=== PATIENT | female | born 2005 | race Caucasian/White ===

== ENCOUNTER 2024-05-13 12:45 | Emergency (ER) | payer OTHER, SELFPAY ==
[2024-05-13 12:59] VITALS: BP 121/83; PULSE 107; RESP 16; TEMP 37.4; O2SAT 100
--- NOTE | 2024-05-13 13:10 | ED_ITS ---
HPI - URI/Sore Throat General Chief Complaint: Upper Respiratory Infection Stated Complaint: Sore Throat Time Seen by Provider: 05/13/24 13:10 Source: patient Mode of arrival: ambulatory Limitations: no limitations History of Present Illness HPI Narrative: 18 yo F presents with c/o congestion, cough, fatigue, feels feverish, fatigue for 2 days. No SOB or CP. vomited x 1 last night. Did have sore throat but res olved. Not taking any smhl-hcs-bbpmgnn medications to treat symptoms. All systems reviewed and negative except as noted above. Related Data Home Medications ?Medication ?Instructions ?Recorded ?Confirmed ?Last Taken ?Type No Home Medications 05/13/24 05/13/24 Unknown History Allergies Allergy/AdvReac Type Severity Reaction Status Date / Time No Known Allergies Allergy Unverified 07/04/16 13:53 Review of Systems Review of Systems: CONSTITUTIONAL: reports fever, chills, or sweats. EYES: Denies visual changes, redness, or discharge. ENT: Reports rhinorrhea, congestion. Denies sore throat, or otalgia. CARDIOVASCULAR: Denies chest pain, palpitations, or edema. RESPIRATORY: reports cough. Denies dyspnea. GASTROINTESTINAL: Denies abdominal pain, nausea, vomiting, or diarrhea. GENITOURINARY: Denies dysuria or hematuria. SKIN: Denies rash or itching. MUSCULOSKELETAL: Denies back pain, joint pain, or myalgia. NEUROLOGIC: Denies headache, numbness, or weakness. PSYCHIATRIC: Denies anxiety or depression. All other systems reviewed are negative, except as documented in HPI. PMFSH Comments At time of signature, agree with nursing past medical, surgical, social and family history. There is no relevant family history pertinent to the presenting complaint. Exam 2 Narrative: GENERAL: This is a well-nourished, well-developed patient, ill-appearing but no acute distress HEAD: normocephalic, atraumatic. EYES: PERRL. Sclera clear/white. Vision is grossly intact. EARS: External ears normal, auditory canals clear and without drainage, TMs normal without perforation. Hearing grossly intact. NOSE: External nose normal with clear nasal drainage, mild congestion, erythema to bilateral nares THROAT: Mucous membranes moist, mild erythema postnasal drainage. No swelling or exudates NECK: Neck supple, non-tender without lymphadenopathy, masses or thyromegaly. CARDIOVASCULAR: Regular rate and rhythm without murmurs, gallops, or rubs. RESPIRATORY: Clear to auscultation. Breath sounds equal bilaterally. No wheezes, rales, or rhonchi. SKIN: warm, Dry, intact with no suspicious lesions or rash, good texture and turgor. NEURO: awake, alert, and oriented to person, place and time. There were no obvious focal neurologic abnormalities. EXTREMITIES: No joint tenderness, effusion, or edema noted. Course Course Level of Care: Express Care Visit Vital Signs Vital signs: Vital Signs Temperature 37.4 C 05/13/24 12:59 Pulse Rate 107 H 05/13/24 12:59 Respiratory Rate 16 05/13/24 12:59 Blood Pressure 121/83 05/13/24 12:59 Pulse Oximetry 100 05/13/24 12:59 Oxygen Delivery Room Air 05/13/24 12:59 Temperature 37.4 C 05/13/24 12:59 Pulse Rate 107 H 05/13/24 12:59 Respiratory Rate 16 05/13/24 12:59 Blood Pressure 121/83 05/13/24 12:59 Pulse Oximetry 100 05/13/24 12:59 Oxygen Delivery Room Air 05/13/24 12:59 reviewed MDM - URI/Sore Throat MDM Narrative Medical decision making narrative: negative COVID and influenza test. Lungs clear to auscultation. Recommend patient start kubk-png-kcvtdlh medications to treat viral symptoms. Well-a ppearing, nontoxic. Patient is aware of diagnosis, understands and agrees to treatment plan. Anticipatory guidance given. Patient agrees to follow-up as directed and is aware of reasons to seek care at the emergency department. Portions of this record may have been created with voice recognition software Differential Diagnosis Differential diagnosis: Likely upper respiratory infection, sinusitis, viral infection and influenza Lab Data Labs: Lab Results 05/13/24 Range/Units 13:16 POC Influenza A Ag Negative (Negative) POC Influenza B Ag Negative (Negative) POC SARS CoV-2 Ag Negative (Negative) Discharge Plan Discharge Clinical Impression: Viral upper respiratory tract infection with cough Patient Disposition: Home, Self-Care Condition: Stable Instructions: Upper Respiratory Infection (ED) Additional Instructions: Your influenza and COVID test were negative today. Your symptoms are viral and may last 10-14 days. Taking kweh-fcp-qejjzdm medication to treat her symptoms such as DayQuil NyQuil cold and flu. Use an wedw-her-nsvbkfc nasal spray such as Flonase or Nasacort. Take ibuprofen every 6-8 hours as needed for pain and fever. Drink at least 64 oz of water a day. Place cool mist humidifier in bedroom where you sleep. Follow-up with your primary care physician if symptoms are not improving. Patient Language: Estonian Prescriptions: No Action No Home Medications Follow-up/Referrals: Edmar,Marcela Melton MD [Primary Care Provider] - Time of Disposition: 13:17
[2024-05-13 13:18] LABS: EDCOVIDSCREEN Negative (Negative); EDINFLUASCREEN Negative (Negative); EDINFLUBSCREEN Negative (Negative)
--- OUTSIDE RECORDS SUMMARY | 2024-05-20 19:26 | XMS_ITS | Encounter Summary ---
Author Organization [facility] Address [address] [place] [address] Phone Care Team Providers Care Integrated Circuit Layout Designer Name Role Phone Marcela Hyatt MD Primary Care Pro vider Reason for Referral * Diagnostic Imaging (Routine) - Authorized Specialty Diagnoses / Procedures Referred By Contac t Referred To Contact Diagnoses Mass of lower outer quadrant of right breast Hx of benign breast biopsy Procedures US Breast Bilateral Limited Deidre Caceres MD PhD [address] [id number] [place] [address] Phone: tel: fax: [address] [phone] Referral ID Status Reason Start Date Expiration Date V isits Requested Visits Authorized [id number] Authorized 07/29/2023 08/27/2024 1 1 Encounter Details Date Type Department Care Team (Late st Contact Info) Description 07/29/2023 Orders Only [facility] Surgery [address] [facility] 5th [place] [address] [place] [address] Deidre Caceres MD PhD [address] [phone] [place] [address] Mass of lower outer quadrant of right breast (Primary Dx); Hx of benign breast biopsy Social History Tobacco Use Types Packs/Day Years Used Date Smoking Tobacco: Never Passive Smoke Exposure: Never Smokeless Tobacco: Never Hunger Vital Sign Answer Date Recorded Within the past 12 months, y ou worried that your food would run out before you got the money to buy more. Never true 09/05/19 23 Within the past 12 months, t he food you bought just didn't last and you didn't have money to get more. Never true 09/04/2022 Personal Safety Answer Date Recorded Have you ever been in or are you currently in a harmful physical or emotional relationship or is someone making you feel afraid or unsafe? 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 Gender Identity Female 02/09/2024 11:18 AM CDT Sexual Orientation Straight 02/09/2024 11 :18 AM CDT documented as of this encounter Plan of Treatment Scheduled Orders Name Type Priority Associated Diagnoses Orde r Schedule US Breast Bilateral Limited Imaging Schedule Routine, Read Routine (OP Routine) Mass of lower outer quadrant of right breast Hx of benign breast biopsy Expected: 07/29/2023, Expires: 09/27/2024 documented as of this encounter Visit Diagnoses Diagnosis Mass of lower outer quadrant of right breast- Primary Hx of benign breast biopsy documented in this encounter Care Teams Integrated Circuit Layout Designer Relationship Specialty Start Date End Date Marcela Hyatt MD PCP - General 09/09/20 documented as of this encounter
--- OUTSIDE RECORDS SUMMARY | 2024-05-20 19:26 | XMS_ITS | Encounter Summary ---
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 documented in this encounter Plan of Treatment Not on file documented as of this encounter Visit Diagnoses Not on filedocumented in this encounter Discontinued Medications Medication Sig Discontinue Reason Start Date End Da te drospirenone-ethinyl estradioL (NALLELY DIMAS) 3-0.02 mg per tabletIndications:Pregnanc y Contraception Take 1 tablet by mouth daily Reorder 09/24/2022 08/11/2023 documented as of this encounter Care Teams Potato Chip Processing Supervisor Relationship Specialty Start Date End Date Marcela Hyatt MD PCP - General 09/09/20 documented as of this encounter
--- OUTSIDE RECORDS SUMMARY | 2024-05-20 19:26 | XMS_ITS | Encounter Summary ---
Author Organization [facility] Healthcare Address [address] [place] [address] Care Team Providers Care Head Esthetician Name Role Phone Marcela Hyatt MD Primary Care Pro vider Encounter Details Date Type Department Care Team ([facility] st Contact Info) Description 08/11/2023 Telephone [facility] [address] 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 documented in this encounter Plan of Treatment Not on file documented as of this encounter Visit Diagnoses Not on filedocumented in this encounter Care Teams Head Esthetician Relationship Specialty Start Date End Date Marcela Hyatt MD PCP - General 09/09/20 documented as of this encounter
--- OUTSIDE RECORDS SUMMARY | 2024-05-20 19:26 | XMS_ITS | Encounter Summary ---
Author Organization [facility] Healthcare Address [address] [place] [address] Care Team Providers Care Territory Business Manager Name Role Phone Marcela Hyatt MD Primary Care Pro vider Reason for Visit * Reason Comments well woman exam Encounter Details Date Type Department Care Team (Late st Contact Info) Description 10/05/2023 2:15 PM CDT Office Visit [facility] Clinic [address] [place] [address] 3rd [address] [place] [address] Gabby Contreras MD [address] [place] [address] [address] [place] [address] Healthcare maintenance (Primary Dx) Social History Tobacco Use Types Packs/Day Years Used Date Smoking Tobacco: Never Passive Smoke Exposure: Never Smokeless Tobacco: Never Tobacco Cessation:Counseling Given: Not Answered Hunger Vital Sign Answer Date Recorded Within the past 12 months, y ou worried that your food would run out before you got the money to buy more. Never true 10/05/19 24 Within the past 12 months, t he food you bought just didn't last and you didn't have money to get more. Never true 10/05/2023 Personal Safety Answer Date Recorded Have you ever been in or are you currently in a harmful physical or emotional relationship or is someone making you feel afraid or unsafe? 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 Gender Identity Female 02/09/2024 11:18 AM CDT Sexual Orientation Straight 02/09/2024 11 :18 AM CDT documented as of this encounter Last Filed Vital Signs Vital Sign Reading Time Taken Comments Blood Pressure 127/73 10/05/2023 2:38 PM CDT Pulse 85 10/05/2023 2:38 PM CDT Temperature - - Respiratory Rate - - Oxygen Saturation 97% 10/05/2023 2:38 PM CDT Inhaled Oxygen Concentration - - Weight 65.6 kg (144 lb 9.6 oz) 10/05/2023 2:38 P M CDT Height 167.6 cm (5' 6 ) 10/05/2023 2:38 PM CDT Body Mass Index 23.34 10/05/2023 2:38 PM CDT Body Mass Index Percentile 69.04% 10/05/2023 2:3 8 PM CDT Growth Chart: [facility] (Girls, 2- 20 Years) documented in this encounter Ordered Prescriptions Prescription Sig Dispense Quantity Refills Last Filled Start Date End Date drospirenone-ethin yl estradioL (WING,GIANVI) 3-0.02 mg per tablet Take 1 tablet by mouth daily 1 po qd at same time 84 tablet 3 10/05/2023 10/04/2024 documented in this encounter Progress Notes * Gabby Contreras MD - 10/05/2023 2:15 PM CDT Well Woman Exam Subjective: Sulma Cardona is a 17 y.o. G0 who presents for well woman exam. PMH significant for R breast masses. Pt has a hx of R breast masses for which she had excisional biopsy of masses x3 in 11/2022. 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 Today she presents with R breast lump that she feels has gotten bigger over the last few weeks. Shehad a breast US for this mass in July with BIRADS-3 and recommendation for follow-up in 6 months with repeat R breast US. She follows with surgical oncology and was most recently seen in July and agrees with plan for 6 month follow-up, scheduled on 02/16. Reports she is feeling well. No other tape stringer complaints. She reports currently sexually active with 1 partner and declines STI testing today. She is on Wing/Gianvi for control and is happy with this method. She desires new rx today. INDUSTRIAL WORKERS History Menses: regular, every 30 days, lasting 4 days, not painful. LMP 09/22-09/25. Pap smear: not indicated STD History: none Contraception: Wing / Gianvi HRT: pre-menopausal No past medical history on file. Past Surgical History: Procedure Laterality Date BREAST BIOPSY Right 10/13/2022 TONSILLECTOMY 2017 Current Outpatient Medications: docusate sodium (DOK) 100 mg tablet, Take 1 tablet (100 mg total) by mouth 2 (two) times a day for 5 days, Disp: 10 tablet, Rfl: 0 drospirenone-ethinyl estradioL (WING,GIANVI) 3-0.02 mg per tablet, Take 1 tablet by mouth daily, Disp: 28 tablet, Rfl: 2 ibuprofen 200 mg tab/cap, Take 2 tablet/capsule (400 mg total) by mouth every 6 (six) hours as needed for pain or headaches, Disp: , Rfl: oxyCODONE (ROXICODONE) 5 mg immediate release tablet, Take 1 tablet (5 mg total) by mouth every 4 (four) hours as needed for pain, Disp: 8 tablet, Rfl: 0 No Known Allergies Family History Problem Relation Age of Onset Cancer Neg Hx Anesthesia problems Neg Hx Social History Tobacco Use Smoking status: Never Passive exposure: Never Smokeless tobacco: Never Substance and Sexual Activity Drug use: Never Sexual activity: Defer Alcohol Use: Not on file Objective: BP 127/73 (Patient Position: Sitting) Pulse 85 Ht 167.6 cm (5' 6 ) Wt 144 lb 9.6 oz LMP 09/23/2023 SpO2 97% BMI 23.34 kg/m?? Physical Exam General: NAD, mood appropriate Pulmonary: Non-labored Cardiovascular: Regular rate Breasts: One dominant mass in R breast at 12 o'clock. It is firm and mobile. No other masses felt b/l. No nipple discharge skin dimpling or erythema. No axillary lymphadenopathy bilaterally. Abdomen: soft, non-tender, non-distended, without rebound or guarding Extremities: Warm and well perfused GENITAL EXAM: deferred Assessment and Plan: Sulma Cardona is a 17 y.o. G0 here for well woman exam. #Well Woman Exam - Contraceptive options reviewed. Patient would like to continue Wing/Gianvi. Rx re-sent for 12 months. - STI screening discussed. Declines - Cervical cancer screening: Not yet indicated 2/2 age. - Breast cancer screening: CBE as above. Plan for follow-up breast US scheduled 02/16. - Colon cancer screening: Not indicated - DEXA: Not indicated RTC 1 year for WWE or sooner PRN. Patient seen and discussed with Dr. Walter. Gabby Contreras MD Cosigned by Trung Walter MD at 10/07/2023 2:05 PM CDT Associated attestation - Trung Walter MD - 10/07/2023 2:05 PM CDT I have seen and examined the patient. I agree with the findings and plan of care as documented in the resident/fellow's note. documented in this encounter Plan of Treatment Not on file documented as of this encounter Visit Diagnoses Diagnosis Healthcare maintenance- Primary documented in this encounter Discontinued Medications Medication Sig Discontinue Reason Start Date End Da te docusate sodium (DOK) 100 mg tabletIndications:const ipation Take 1 tablet (100 mg total) by mouth 2 (two) times a day for 5 days Therapy completed 12/11/2022 10/07/2023 ibuprofen 200 mg tab/cap Take 2 tablet/capsule (400 mg total) by mouth every 6 (six) hours as needed for pain or headaches Therapy completed 10/07/2023 oxyCODONE (ROXICODONE) 5 mg immediate release tabletIndications:Pain Take 1 tablet (5 mg total) by mouth every 4 (four) hours as needed for pain Therapy completed 12/11/2022 10/07/2023 documented as of this encounter Care Teams Territory Business Manager Relationship Specialty Start Date End Date Marcela Hyatt MD PCP - General 09/09/20 documented as of this encounter
--- OUTSIDE RECORDS SUMMARY | 2024-05-20 19:26 | XMS_ITS | Encounter Summary ---
Author Organization [facility] Address [address] [facility] [address] [place] [address] Phone Care Team Providers Care Bow Stapler Name Role Phone Marcela Hyatt MD Primary Care Pro vider Encounter Details Date Type Department Care Team (Late st Contact Info) Description 02/11/2024 Telephone [facility] Surgery [address] [facility] 5th [place] [address] [place] [address] Deidre Caceres MD PhD [address] [facility] [phone] [place] [address] Social History Tobacco Use Types Packs/Day Years [...] on file 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 No Reason for call?: Patient calling to confirm an issue with Billing for insurance for the ultrasoundscheduled on 02/17. Gave her billing number, but she was under the impression that this would be covered as a preventative. Who is the caller: Fariba (Pt. Mother) What is the best number for them to contact for a call back: [phone] documented in this encounter Plan of Treatment Not on file documented as of this encounter Visit Diagnoses Not on filedocumented in this encounter Care Teams Bow Stapler Relationship Specialty Start Date End Date Marcela Hyatt MD PCP - General 09/09/20 documented as of this encounter
--- OUTSIDE RECORDS SUMMARY | 2024-05-20 19:26 | XMS_ITS | Encounter Summary ---
Author Organization [facility] Address [address] [place] [address] Phone Care Team Providers Care Automotive Repair Technician Name Role Phone Marcela Hyatt MD Primary Care Pro vider Encounter Details Date Type Department Care Team (Late st Contact Info) Description 02/08/2024 Telephone [facility] Surgery [address] [facility] 5th [place] [address] [place] [address] Svetlana Marie Social History Tobacco Use Types Packs/Day Years [...] on file 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 documented in this encounter Plan of Treatment Not on file documented as of this encounter Visit Diagnoses Not on filedocumented in this encounter Care Teams Automotive Repair Technician Relationship Specialty Start Date End Date Marcela Hyatt MD PCP - General 09/09/20 documented as of this encounter
--- OUTSIDE RECORDS SUMMARY | 2024-05-20 19:26 | XMS_ITS | Clinical Summary ---
Author Organization [facility] Address [address] [place] [address] Care Team Providers Care Multiple Knife Edge Trimmer Operator Name Role Phone Marcela Hyatt MD Primary Care Pro vider Allergies No known active allergies Medications drospirenone-ethin yl estradioL (WING,GIANVI) 3-0.02 mg per tabletIndications: Contraception Take 1 tablet by mouth daily 28 tablet 2 4 08/11/19 25 Active drospirenone-ethin yl estradioL (WING,GIANVI) 3-0.02 mg per tablet Take 1 tablet by mouth daily 1 po qd at same time 84 tablet 3 4 10/05/19 25 Active Active Problems Problem Noted Date Diagnosed Date Healthcare maintenance 09/04/2022 Overview (09/04/2022): - STI testing today Encounter for general sobia duran and advice on contraceptive management 09/04/2022 Overview (09/04/2022): - no contraindication to estrogen - discussed contraceptive options - information printed out for patient - patient will notify provider if she would like to start control Mass of right breast 09/04/2022 Overview (09/04/2022): - Reports long standing hx of R breast mass followed by US - Most recently patient had bilateral breast US on 07/03/22 that showed 2.9 cm mass in R breast (4 o'clock) increased in size and 1.0 cm mass in R breast (3 o'clock). BI-RADS 4A and US guided biopsy was recommended. 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 Gender Identity Female 02/09/2024 11:18 AM CDT Sexual Orientation Straight 02/09/2024 11 :18 AM CDT Obstetrics History Growth Chart Information Age Height Weight Rblpix-pba-tdoh th Percentile BMI Percentile Head Circum Head Circum Percentile Date 17 years 167.6 cm (5' 6 ) 65.6 kg (144 lb 9.6 oz) 69.04%* 2023 17 years 167.6 cm (5' 5.98 ) 65.8 kg (145 lb 1 oz) 70.25%* 2023 17 years 167.6 cm (5' 5.98 ) 65.8 kg (145 lb 1 oz) 71.86%* 2022 17 years 167.6 cm (5' 6 ) 65.8 kg (145 lb) 71.80%* 2022 17 years 167.6 cm (5' 6 ) 64.9 kg (143 lb) 69.39%* 2022 16 years 65.2 kg (143 lb 12.8 oz) 2022 14 years 167.6 cm (5' 6 ) 54.4 kg (120 lb) 36.24%* 2020 * [facility] (Girls, 2-20 Years) Last Filed Vital Signs Vital Sign Reading Time Taken Comments Blood Pressure 127/73 10/05/2023 2:38 PM CDT Pulse 85 10/05/2023 2:38 PM CDT Temperature 36.2 ??C (97.2 ??F) 12/11/2022 6:51 PM CD T Respiratory Rate 20 12/11/2022 7:25 PM CDT Oxygen Saturation 97% 10/05/2023 2:38 PM CDT Inhaled Oxygen Concentration - - Weight 65.6 kg (144 lb 9.6 oz) 10/05/2023 2:38 P M CDT Height 167.6 cm (5' 6 ) 10/05/2023 2:38 PM CDT Body Mass Index 23.34 10/05/2023 2:38 PM CDT Body Mass Index Percentile 69.04% 10/05/2023 2:3 8 PM CDT Growth Chart: [facility] (Girls, 2- 20 Years) Plan of Treatment Health Maintenance Due Date Last Done Comments Depression Screening 2004 Hepatitis C Screening 2004 Meningococcal B Vaccine (1 of 2 - Patient Seeks Protection) 2020 Influenza Vaccine (#1) 2024 Regular Well Visit/Exam 18-64 10/04/2024 10/05/2023 DTaP/Tdap/Td Vaccine (7 - Td or Tdap) 11/05/2024 11/05/2014, 11/12/2009, 02/05/2006, Additional history exists Pneumococcal vaccine <65 Aged Out 006, 04/17/2005, 02/20/2005, Additional history exists No longer eligible based on patient's age to complete this topic Varicella Vaccines Completed 11/12/2009, 11/13/2005 HPV Vaccines Completed 11/11/2015, 11/05/2014 Meningococcal Vaccine Completed 01/23/2021, 016 Medical Devices Implanted Type Area Cause Analyst Device Identifier Shelf Expiration Date Model / Serial / Lot Bard Peripheral Vascular Ultraclip Bard 17ga 10cm 2 Trigger Permanent Ultrasound [id number] - [id number] Implanted:Qty: 1 on 10/13/2022 at [facility] Bard Peripheral Vascular [id number] / / Insurance [facility] [employer] [facility] [employer] Care Teams Multiple Knife Edge Trimmer Operator Relationship Specialty Start Date End Date Marcela Hyatt MD PCP - General 09/09/20
--- OUTSIDE RECORDS SUMMARY | 2024-05-20 19:26 | XMS_ITS | Referral Summary ---
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 (Girls, 2- 20 Years) Plan of Treatment Not on file Medical Devices Implanted Type Area Dental Hygiene Professor Device Identifier Shelf Expiration Date Model / Serial / Lot Bard Peripheral Vascular Ultraclip Bard 17ga 10cm 2 Trigger Permanent Ultrasound [id number] - [id number] Implanted:Qty: 1 on 10/13/[address] [facility] Bard Peripheral Vascular [id number] / / Insurance [facility] STUDENT RESOURCES [facility] HMO/PPO Address: [facility] [id number] [place] [phone] [facility] [employer] [facility] HMO/PPO Address: [facility] [id number] [place] [phone] Care Teams Knitting Demonstrator Relationship Specialty Start Date End Date Marcela Hyatt MD PCP - General 09/09/20
--- OUTSIDE RECORDS SUMMARY | 2024-05-20 19:26 | XMS_ITS | Clinical Summary ---
Author Organization [facility] Address [address] [facility], [address] [address] Phone Care Team Providers Care Liquid Chlorine Operator Name Role Phone Marcela Hyatt MD Primary Care Provider [phone] Allergies No known active allergies Medications acetaminophen (TYLENOL) 80 MG Chewable Tablet Take 4 Tabs by mouth every 4 hours as needed for Pain or Fever. 7 Active Additional Information Patient not taking.Reported on 02/15/2017 HYDROcodone-Torsten taminophen 7.5-325 MG/15ML Solution Take 16.3 mL by mouth every 4 hours as needed for Pain. 120 mL Active Additional Information Patient not taking.Reported on 02/15/2017 Social History Tobacco Use Types Packs/Day Years Used Date Smoking Tobacco: Never Smokeless Tobacco: Never Alcohol Use Standard Drinks/Week Comments No 0 (1 standard drink = 0.6 oz pur e alcohol) Comments No Sex and Gender Information Value Date Recorded Sex Assigned at Not on file Legal Sex Female 8:01 PM CDT Gender Identity Not on file Sexual Orientation Not on file Last Filed Vital Signs Vital Sign Reading Time Taken Comments Blood Pressure 102/64 02/15/2017 2:40 PM CDT Pulse 64 02/15/2017 2:40 PM CDT Temperature 35.2 ??C (95.4 ??F) 01/21/2017 11:08 AM C DT Respiratory Rate 18 02/15/2017 2:40 PM CDT Oxygen Saturation 99% 02/15/2017 2:40 PM CDT Inhaled Oxygen Concentration - - Weight 46.3 kg (102 lb) 02/15/2017 2:40 PM CDT Height 162.6 cm (5' 4 ) 02/15/2017 2:40 PM CDT Body Mass Index 17.51 02/15/2017 2:40 PM CDT Body Mass Index Percentile 38.47% 02/15/2017 2:4 0 PM CDT Growth Chart: [facility] (Girls, 2- 20 Years) Plan of Treatment Health Maintenance Due Date Last Done Comments Hepatitis C Virus (HCV) Screening 2004 Meningococcal Immunization (ACWY) (2 - 2-dose series) 2020 11/11/2015 SARS-COV-2 Immunization (2022-24 season) 2023 Influenza Immunization (Season Ended) 2024 DTaP/Tdap/Td Immunization (7 - Td or Tdap) 11/05/2024 11/05/2014, 11/12/2009, 02/05/2006, Additional history exists Hepatitis B Immunization Completed 005, 02/20/2005, 2004, Additional history exists Pneumococcal Immunization Combined Aged Out 11/13/2005, 04/17/2005, 02/20/2005, Additional history exists No longer eligible based on patient's age to complete this topic Hepatitis A Immunization Completed 11/05/2006, 04/17 Measles Mumps Rubella (MMR) Immunization Completed 11/12/2009, 11/13/2005 Polio (IPV) Immunization Completed 010, 04/17/2005, 02/20/2005, Additional history exists Varicella Immunization Completed 11/12/2009, 2005 Human Papillomavirus (HPV) Immunization Completed 11/11/2015, 11/05/2014 Rotavirus Immunization Aged Out No lo nger eligible based on patient's age to complete this topic Insurance MEDICAID [employer] Care Teams Liquid Chlorine Operator Relationship Specialty Start Date End Date Marcela Hyatt MD [address] [facility] [address] [place] [id number] PCP - General Pediatrics 12/09/16
--- OUTSIDE RECORDS SUMMARY | 2024-05-20 19:27 | XMS_ITS | Encounter Summary ---
Author Organization [facility] Address [address] [place] [address] Care Team Providers Care Data Collector Name Role Phone Marcela Hyatt MD Primary Care Pro vider Reason for Referral * Diagnostic Imaging (Routine) - Closed Specialty Diagnoses / Procedures Referred By Shimon hale Referred To Contact Diagnoses Unspecified lump in the right breast, unspecified quadrant Procedures US Breast Right Limited Yaima Carter NP Phone: tel: fax: [address] [phone] Referral ID Status Reason Start Date Expiration Date Visits Re quested Visits Authorized [id number] Closed 09/11/2020 10/11/2021 1 1 Reason for Visit * Diagnostic Imaging (Routine) - Closed Specialty Diagnoses / Procedures Referred By Shimon hale Referred To Contact Diagnoses Unspecified lump in the right breast, unspecified quadrant Procedures US Breast Right Limited Yaima Carter NP Phone: tel: fax: [address] [phone] Referral ID Status Reason Start Date Expiration Date Visits Re quested Visits Authorized [id number] Closed 09/11/2020 10/11/2021 1 1 Encounter Details Date Type Department Care Team (Latest Contact Info) Description 09/20/2020 2:09 PM CDT - 09/20/2020 11:59 PM CDT Hospital Encounter [facility] ` [id number] [place] [address] Marcela Hyatt MD [address] [place] [address] [address] [place] [address] 1, Yaima Bo Md, NP [address] [place] [address] [address] [place] [address] Unspecified lump in the right breast, unspecified quadrant Discharge Disposition: Discharge to home or self care Social History Tobacco Use Types Packs/Day Years Used Date Smoking Tobacco: Never Assessed Comments No Sex and Gender Information Value Date Recorded Sex Assigned at Not on file 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 Gender Identity Female 02/09/2024 11:18 AM CDT Sexual Orientation Straight 02/09/2024 11 :18 AM CDT documented as of this encounter Discharge Disposition Disposition Code Departure Means Destination Discharge to home or self care documented in this encounter Plan of Treatment Not on file documented as of this encounter Procedures Procedure Name Priority Date/Time Associated Diagnosis Comments US BREAST RIGHT LIMITED Schedule Routine, Read Routine (OP Routine) 09/20/2020 2:47 PM CDT Unspecified lump in the right breast, unspecified quadrant documented in this encounter Results * US Breast Right Limited (09/20/2020 2:47 PM CDT) Anatomical Region Laterality Modality Breast Right Ultrasound 09/20/2020 3:05 PM CDT Impressions 09/20/2020 3:05 PM CDT BI-RADS Category 3 probably benign Suggest follow-up ultrasound every 6 months for 2 years. Electronically signed by: Linn Guzman M.D. Narrative 09/20/2020 3:05 PM CDT EXAM: ??US BREAST RIGHT LIMITED DATE: 09/20/2020 2:30 PM CLINICAL HISTORY: Palpable lump right breast for the 2 weeks and 14-year-old female TECHNIQUE: Multiple ultrasonographic images of the right breast obtained ?? Comparison none FINDINGS: Real-time examination of the right breast is performed in the area of palpable lump. At 4:00 4 cm from the nipple there is 1.9 cm x 0.9 cm x 1.8 cm hypoechoic capsulated mass with blood flow suggestive of fibroadenoma suggest ultrasound guided biopsy/6 month follow-up for 2 years. Patient's mom had decided ??follow-up every 6 month for 2 years. us Yaima Carter INSIGHT LEADER IMG MAMMO PROCEDURES Final Res ult documented in this encounter Visit Diagnoses Diagnosis Unspecified lump in the right breast, unspecified quadrant documented in this encounter Care Teams Data Collector Relationship Specialty Start Date End Date Marcela Hyatt MD PCP - General 09/09/20 documented as of this encounter
--- OUTSIDE RECORDS SUMMARY | 2024-05-20 19:27 | XMS_ITS | Encounter Summary ---
Author Organization [facility] Address [address] [facility] [address] [place] [address] Phone Care Team Providers Care Manager Content Name Role Phone Marcela Hyatt MD Primary Care Pro vider Reason for Visit * Reason Comments Follow-up * Consultation (Routine) - Closed Specialty Diagnoses / Procedures Referred By Contac t Referred To Contact Surgical Oncology Diagnoses Mass of lower outer quadrant of right breast Deidre Caceres MD PhD [address] [facility] [phone] [place] [address] Phone: tel: fax: Deidre Caceres MD PhD [address] [facility] [phone] [place] [address] Phone: tel: fax: Referral ID Status Reason Start Date Expiration Date V isits Requested Visits Authorized [id number] Closed Specialty Services Required 11/30/2022 12/30/2023 1 1 Encounter Details Date Type Department Care Team (Late st Contact Info) Description 12/24/2022 10:45 AM CDT Office Visit [facility] Surgery [address] [facility] 5th [place] [address] [place] [address] Deidre Caceres MD PhD [address] [facility] [phone] [place] [address] Hx of benign breast biopsy (Primary Dx); Mass of lower outer quadrant of right breast; Fibroadenoma of right breast Social History Tobacco Use Types Packs/Day Years [...] on file 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 Gender Identity Female 02/09/2024 11:18 AM CDT Sexual Orientation Straight 02/09/2024 11 :18 AM CDT documented as of this encounter Last Filed Vital Signs Vital Sign Reading Time Taken Comments Blood Pressure - - Pulse - - Temperature - - Respiratory Rate - - Oxygen Saturation - - Inhaled Oxygen Concentration - - Weight 65.8 kg (145 lb 1 oz) 12/24/2022 10:46 AM CDT Height 167.6 cm (5' 5.98 ) 12/24/2022 10:46 AM C DT Body Mass Index 23.43 12/24/2022 10:46 AM CDT Body Mass Index Percentile 71.86% 12/24/2022 10: 46 AM CDT Growth Chart: [facility] (Girls, 2- 20 Years) documented in this encounter Progress Notes * Deidre Caceres MD PhD - 12/24/2022 10:45 AM CDT Chief Complaint: Postoperative Follow up Right Breast Excisional Biopsy Of Masses X 3 - Right and Mastopexy- [place] - Right Marcela Hyatt* requested that I see SUNG Ding 2005, in consultation for right breast fibr. Treatment to Date: 07/03/2022 Right breast US: 2.9 cm mass at the palpable area of concern in the right breast at the 4 o'clock position, 4 cm from the nipple has increased in size. The 1.0 cm mass in the right breast at the 3 o'clock position, 4 cm from the nipple has increased in size. This is of lowsuspicion for malignancy and is favored to represent a complicated cyst or cyst cluster. 10/13/2022 US Guided Biopsy: Breast, right, 4:00 - 4 cm from nipple, ultrasound- guided biopsy fibroadenoma 12/11/2022 Right breast excisional biopsy and crescent mastopexy showing fibroadenoma HPI 11/05/2022: Patient is a 17 y.o. woman complaining of a mass in the right breast which she first felt in 2020. It has increased in size since she first felt it. Patient denies any other masses, skin changes, nipple discharge or skin changes. Interval History12/24/2022 : This is a 17 y.o. person who presents in postop follow up right breast excisional biopsy. Since surgery, she has been doing well. She denies fevers, redness of incision , pain. She has had some serous drainage from the superior aspect of her incision. Exam Right periareolar incision healing well with small amount of devitalized tissue at the superior aspect of incision. No expressible drainage. Pathology: I reviewed the pathology report. Results for orders placed or performed during the hospital encounter of 12/11/22 Surgical pathology Narrative EPIC results best viewed via link to PDF [facility] [place] [address] Note to Patients: This report may contain a detailed description of human tissue sent by a health care provider to the laboratory for pathologic evaluation. The content of this report is essential for diagnosis and may provide important critical findings. This information may be unfamiliar to patients to review without a medical professional present. Itis advised that the patient review this report in the presence of a health care provider who can answer questions and explain the details. SURGICAL PATHOLOGY REPORT FINAL Patient Name: MARGARETH CARDONA Gender: F : 2005 (Age: 17) Address: [address] [place], [place] [id number] [place] [address] #: [id number] Taken:12/11/2022 Received:12/12/2022 Reported: 12/15/2022 Patient Type: [facility] Service: Surgery Location: Physician(s): Dorothy Guzman M.D. Kaitlyn Kennard, MD Omolade O. Sogade, MD Diagnosis: A. Breast, right, 4:00, lumpectomy - Fibroadenoma - Biopsy site change B. Breast, right, 3:30, lumpectomy - Fibroadenoma - Biopsy site change C. Breast, right, 10:00, lumpectomy - Fibroadenoma fib/12/15/2022 11:02 By this signature, I attest that the above diagnosis is based upon my personal examination of the slides(and/or other material indicated in the diagnosis). Cinthia Travis M.D. Report Electronically Reviewed and Signed Out By Cinthia Travis M.D. 12/15/2022 11:02:38 Microscopic Description and Comment: Microscopic examination substantiates the above cited diagnosis. Sarahi Meadows M.D. History: The patient is an 17 year old woman with right breast masses. Operative procedure: Right breast biopsy. Specimen(s) Received: A: Right breast 4 o'clock mass, short stitch superior, long stitch lateral B: Right breast 3:30 o'clock mass, short stitch superior, long stitch lateral C: Right breast 10:00 o'clock lesion, short stitch superior, long stitch lateral Gross Description: Received in three formalin jars labeled with the patient's identifiers. A. Labeled Right breast 4 o?clock mass, short stitch superior long stitch lateral -Collected: 1744 on 12/11/2022 -Received: 1746 on 12/11/2022 -Placed in formalin: on 12/11/2022 -Specimen dimensions: Medial to Lateral: 2.5 cm Superior to Inferior: 2.5 cm Anterior to Posterior: 2 cm -Weight: 7.6 g -Orientation: Short stitch superior long stitch lateral -Margins inked: Superior: Blue Inferior: Green Anterior: Yellow Posterior: Black -Sectioned: Medial to lateral -Number of slices: 5 -Gross findings: The specimen is a well-defined benson-white, indurated fibrous mass (2.5x2.5x2 cm). The mass has a benson-white, homogenous lobular cut surface with no gross hemorrhage or necrosis. -Specimen radiographed: Yes -Radiograph findings: There is one clip in the specimen. -Diagram: Yes -Summary of sections: A1 Slice 1, medial margin radially sectioned A2-A4 Slice 2-4, mass entirely submitted A5 Slice 5, lateral margin radially sectioned. Jar: 0 B. Labeled Right breast 3:30 o?clock mass, short stitch superior long stitch lateral -Collected: 174 on 12/11/2022 -Received: 175 on 12/11/2022 -Placed in formalin: on 12/11/2022 -Specimen dimensions: Medial to Lateral: 3 cm Superior to Inferior: 2 cm Anterior to Posterior: 1 cm -Weight: 2.8 g -Orientation: Short stitch superior long stitch lateral -Margins inked: Superior: Blue Inferior: Green Anterior: Yellow Posterior: Black -Sectioned: Medial to lateral -Number of slices: -Gross findings: The specimen is an ill-defined benson-white, indurated fibrous mass (3x2x1 cm). The lesion has benson-white cut surface with no gross hemorrhage or necrosis. -Specimen radiographed: Yes -Radiograph findings: There is one clip in the specimen. -Diagram: Yes -Summary of sections: B1 Slice 1, medial margin radially sectioned B2-B4 Slice 2-4, mass entirely submitted B5 Slice 5, lateral margin radially sectioned. Jar: 0 C. Labeled Right breast 10:00 o?clock lesion, short stitch superior long stitch lateral -Collected: 174 on 12/11/2022 -Received: 175 on 12/11/2022 -Placed in formalin: on 12/11/2022 -Specimen dimensions: Medial to Lateral: 1.2 cm Superior to Inferior: 2 cm Anterior to Posterior: 1.9 cm -Weight: 3 g -Orientation: Short stitch superior long stitch lateral -Margins inked: Superior: Blue Inferior: Green Anterior: Yellow Posterior: Black -Sectioned: Medial to lateral -Number of slices: 4 -Gross findings: The specimen is an ill-defined benson-white, indurated fibrous mass (1.2x2x1.9 cm). The lesion has benson-white, homogenous lobular cut surface with no gross hemorrhage or necrosis. -Specimen radiographed: Yes -Radiograph finding -Diagram: Yes -Summary of sections: C1 Slice 1, medial margin radially sectioned C2-C3 Slice 2-3, mass entirely submitted C4 Slice 4, lateral margin radially sectioned. Jar: 0 [facility]12/14/2022 09:10 Gross Resident:Gavino Myers M.D. By this signature, I attest that the above diagnosis is based upon my personal examination of the slides(and/or other material). Addenda/Procedures The performance characteristics of some immunohistochemical stains, fluorescence in-situ hybridization tests and immunophenotyping by flow cytometry cited in this report (if any) were determined by the Surgical Pathology and Flow Cytometry Departments at [facility] as part of an ongoing bottle house quality control technician program and in compliance with federally mandated regulations drawn from the Clinical Laboratory Improvement Act of 1988 (CLIA '88). Some of these tests rely on the use of analyte specific reagents and are subject to specific labeling requirements by the US Food and Drug Administration.Such diagnostic tests may only be performed in a facility that is certified by the Department of Health and Human Services as a high complexity laboratory under CLIA '88. The FDA has determined that such clearance or approval is not necessary. This test is used for clinical purposes. It should not be regarded as investigational or for research. Nevertheless, federal rules concerning the medical use of analyte specific reagents require that the following disclaimer be attached to the report: This test was developed and its performance characteristics determined by the Surgical Pathology and Flow Cytometry Departments of [facility]. It has not been cleared or approved by the U. S. Food and Drug Administration. IMAGES AND SCANNED DOCUMENTS, IF INCLUDED, ONLY VIEWABLE IN PDF VERSION OF REPORT Assessment: Right breast fibroadenoma s/p excisional biopsy x 3 Plan: Margareth is 13 days postop from Right Breast Excisional Biopsy Of Masses X 3 - Right and Mastopexy- [place] - Right. This was a benign excision and does not require further intervention. She will return to see me on an as-needed basis. She was counseled on starting regular mammograms at age 39. I answered all her questions today. She knows to call with questions. Thank you for the kind referral and opportunity to be involved in the care of Margareth Cardona. Please call with questions. This note is dictated and transcribed by [employer]. Client Solutions Director variances may occur. Despite proofreading, typographical errors may occur. cc: Kati Caceres* I have seen and examined this patient with the resident Dr. Kimberlee Kaminski. I have made necessary changes/edits to this note. documented in this encounter Plan of Treatment Not on file documented as of this encounter Visit Diagnoses Diagnosis Hx of benign breast biopsy- Primary Mass of lower outer quadrant of right breast Fibroadenoma of right breast documented in this encounter Orders Outpatient Referral Count Last Ordered Date Fir st Ordered Date AMB REFERRAL TO SURGICAL ONCOLOGY 1 023 documented in this encounter Care Teams Manager Content Relationship Specialty Start Date End Date Marcela Hyatt MD PCP - General 09/09/20 documented as of this encounter
--- OUTSIDE RECORDS SUMMARY | 2024-05-20 19:27 | XMS_ITS | Encounter Summary ---
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 She had surgery w/[facility] 12/11/22. She stated they notice aspot of dry blood on the incision site of the rt breast. Pt wants to know if this is normal. documented in this encounter Plan of Treatment Not on file documented as of this encounter Visit Diagnoses Not on filedocumented in this encounter Care Teams Tentmaker Relationship Specialty Start Date End Date Marcela Hyatt MD PCP - General 09/09/20 documented as of this encounter
--- OUTSIDE RECORDS SUMMARY | 2024-05-20 19:27 | XMS_ITS | Encounter Summary ---
Author Organization [facility] Address [address] [place] [address] Care Team Providers Care Disabilities Services Officer Name Role Phone Unavailable Primary Care Provider Unavailantonia e Encounter Details Date Type Department Care Team (Late st Contact Info) Description 05/26/2015 12:53 PM HOUSE SHORER - 05/26/2015 2:40 PM HOUSE SHORER Hospital Encounter [facility] Fariba Moya MD [address] [place] [address] Closed nondisplaced fracture of distal phalanx of left great toe; Fall (on) (from) other stairs and steps, initial encounter; Activity involving running; Other place in unspecified non-institutional (private) residence as the place of occurrence of the external cause; Other external cause status Social History Tobacco Use Types Packs/Day Years Used Date Smoking Tobacco: Never Assessed Comments Unknown Sex and Gender Information Value Date Recorded Sex Assigned at Not on file 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 [id number] ??Acc#: ??[id number] DATE OF EXAM: ??May 26 2015 CLINICAL HISTORY: Fell down stairs yesterday. ??Pain and bruising distally. RESULT: Three views of the left great toe to include an AP view of the entire foot demonstrate a fracture along the growth plate. ??On lateral view, there is a small sliver of bone between the epiphysis and metaphysis. ??No other fracture, dislocation or bone destruction is seen. IMPRESSION: SALTER-MALONE TYPE 2 FRACTURE ALONG THE EPIPHYSEAL GROWTH PLATE AT POSTERIOR BASE OF LEFT GREAT TOE DISTAL PHALANX. Interpreting Physician: ??DR EDGARD EVERETT M.D. ??Read on: ??May 27 2015 8:57A Transcribed by: ??mrr ??On: May 27 2015 10:50A Approved Electronically by: ??KARLOS De La Cruz, DR RENE ??on: ??May 27 2015 11:08A Attending: ??YOSI ODONNELL Requesting: ??NARESH PEGUERO Requesting Fax: ??-- Attending Fax: ??-- Attending ID: ??[id number] Requesting ID: ??[id number] NextGen Order #: Procedure Note Provider, MD Larry - 09/15/2016 XR Toe L-Great [id number] Acc#: [id number] DATE OF EXAM: May 26 2015 CLINICAL HISTORY: Fell down stairs yesterday. Pain and bruising distally. RESULT: Three views of the left great toe to include an AP view of the entirefoot demonstrate a fracture along the growth plate. On lateral view,there is a small sliver of bone between the epiphysis and metaphysis. Noother fracture, dislocation or bone destruction is seen. IMPRESSION: SALTER-MALONE TYPE 2 FRACTURE ALONG THE EPIPHYSEAL GROWTH PLATE ATPOSTERIOR BASE OF LEFT GREAT TOE DISTAL PHALANX. Interpreting Physician: DR EDGARD EVERETT M.D. Read on: May 27 20158:57A Transcribed by: mrr On: May 27 2015 10:50A Approved Electronically by: KARLOS De La Cruz, DR RENE on: May 27 201511:08A Attending: YOSI ODONNELL Requesting: NARESH PEGUERO Requesting Fax: -- Attending Fax: -- Attending ID: [id number] Requesting ID: [id number] NextGen Order #: us Historical Provider MD JACKSON XR PROCEDURES Final R esult documented in this encounter Visit Diagnoses Diagnosis Closed nondisplaced fracture of distal phalanx of left great toe Fall (on) (from) other stairs and steps, initial encounter Activity involving running Other place in unspecified non-institutional (private) residence as the place of occurrence of the external cause Other external cause status documented in this encounter
--- OUTSIDE RECORDS SUMMARY | 2024-05-20 19:27 | XMS_ITS | Encounter Summary ---
Author Organization [facility] Healthcare Address [address] [place] [address] Care Team Providers Care Refrigerating Engineer Name Role Phone Marcela Hyatt MD Primary Care Pro vider Reason for Referral * Diagnostic Imaging (Routine) - Closed Specialty Diagnoses / Procedures Referred By Shimon hale Referred To Contact Diagnoses Unspecified lump in the right breast, unspecified quadrant Procedures US Breast Right Limited Sruthi Chappell NP Phone: tel: fax: [address] [phone] Referral ID Status Reason Start Date Expiration Date Visits Re quested Visits Authorized [id number] Closed 04/25/2021 05/25/2022 1 1 NIUM PLANT OPERATOR Reason for Visit * Diagnostic Imaging (Routine) - Closed Specialty Diagnoses / Procedures Referred By Shimon hale Referred To Contact Diagnoses Unspecified lump in the right breast, unspecified quadrant Procedures US Breast Right Limited Sruthi Chappell NP Phone: tel: fax: [address] [phone] Referral ID Status Reason Start Date Expiration Date Visits Re quested Visits Authorized [id number] Closed 04/25/2021 05/25/2022 1 1 Encounter Details Date Type Department Care Team (Late st Contact Info) Description 05/01/2021 8:15 AM SELENIUM PLANT OPERATOR - 05/01/2021 11:59 PM SELENIUM PLANT OPERATOR Hospital Encounter [facility] ` [address] [place] [address] Unknown, Notinfile 1, Sruthi Rios Md, ENTERPRISE APPLICATION DEVELOPER [address] [place] [address] Unspecified lump in the right breast, unspecified quadrant Discharge Disposition: Discharge to home or self care Social History Tobacco Use Types Packs/Day Years Used Date Smoking Tobacco: Never Assessed Comments No Sex and Gender Information Value Date Recorded Sex Assigned at Not on file Legal Sex Female 6:26 PM SELENIUM PLANT OPERATOR Gender Identity Female 02/09/2024 11:18 AM [...] LIMITED Schedule Routine, Read Routine (OP Routine) 05/01/2021 8:55 AM SELENIUM PLANT OPERATOR Unspecified lump in the right breast, unspecified quadrant documented in this encounter Results * US Breast Right Limited (05/01/2021 8:55 AM SELENIUM PLANT OPERATOR) Anatomical Region Laterality Modality Breast Right Ultrasound 05/01/2021 9:09 AM SELENIUM PLANT OPERATOR Impressions 05/01/2021 9:09 AM SELENIUM PLANT OPERATOR 0.3 cm x 0.3 cm x 0.4 cm simple cyst in the area of palpable abnormality at the 3:00. Electronically signed by: Linn Guzman M.D. Narrative 05/01/2021 9:09 AM SELENIUM PLANT OPERATOR EXAM: ??US BREAST RIGHT LIMITED DATE: 05/01/2021 8:30 AM CLINICAL HISTORY: Palpable lump ??right breast at 3:00 which has decrease in size . TECHNIQUE: Multiple ultrasonographic images of the right breast obtained ?? Comparison none FINDINGS: Ultrasonographic evaluation of the right breast is performed in the area of palpable abnormality at 3:00 4 cm from the nipple. There is a dense fibroglandular breast parenchyma. ??In the area of palpable abnormality there is ??0.3 cm x 0.3 cm x 0.4 cm anechoic, avascular mass suggestive of a simple cyst. us Sruthi M. Crotchett ENTERPRISE APPLICATION DEVELOPER IMG MAMMO PROCEDURES Final Result documented in this encounter Visit Diagnoses Diagnosis Unspecified lump in the right breast, unspecified quadrant documented in this encounter Care Teams Refrigerating Engineer Relationship Specialty Start Date End Date Marcela Hyatt MD PCP - General 09/09/20 documented as of this encounter
--- OUTSIDE RECORDS SUMMARY | 2024-05-20 19:27 | XMS_ITS | Encounter Summary ---
Author Organization [facility] Address [address] [facility] [address] [place] [address] Phone Care Team Providers Care Driver Salesman Name Role Phone Marcela Hyatt MD Primary Care Pro vider Reason for Referral * Diagnostic Imaging (Routine) - Pending Review Specialty Diagnoses / Procedures Referred By Contac t Referred To Contact Diagnoses Mass of lower outer quadrant of right breast Hx of benign breast biopsy Fibroadenoma of right breast Procedures US Chest Breast Related Deidre Caceres MD PhD [address] [facility] [phone] [place] [address] Phone: tel: fax: [facility] [address] [place] [address] Referral ID Status Reason Start Date Expiration Date V isits Requested Visits Authorized [id number] Pending Review 07/29/2023 08/27/2024 1 1 Encounter Details Date Type Department Care Team (Late st Contact Info) Description 07/29/2023 Orders Only [facility] Surgery [address] 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 Gender Identity Female 02/09/2024 11:18 AM CDT Sexual Orientation Straight 02/09/2024 11 :18 AM CDT documented as of this encounter Plan of Treatment Scheduled Orders Name Type Priority Associated Diagnoses Orde r Schedule US Chest Breast Related Imaging Schedule Routine, Read Routine (OP Routine) Mass of lower outer quadrant of right breast Hx of benign breast biopsy Fibroadenoma of right breast Expected: 07/29/2023, Expires: 01/28/2025 documented as of this encounter Visit Diagnoses Diagnosis Mass of lower outer quadrant of right breast- Primary Hx of benign breast biopsy Fibroadenoma of right breast documented in this encounter Care Teams Driver Salesman Relationship Specialty Start Date End Date Marcela Hyatt MD PCP - General 09/09/20 documented as of this encounter
--- OUTSIDE RECORDS SUMMARY | 2024-05-20 19:27 | XMS_ITS | Encounter Summary ---
Author Organization [facility] Healthcare Address [address] [place] [id number] Care Team Providers Care Billet Shearer Name Role Phone Marcela Hyatt MD Primary Care Pro vider Reason for Visit * Reason Onset Date Comments Scheduling Appointments 07/16/2022 Encounter Details Date Type Department Care Team (Late st Contact Info) Description 07/16/2022 Telephone [facility] [address] [place] [address] [address] [place] [address] Tony Carlson Scheduling Appointments Social History Tobacco Use Types Packs/Day Years Used Date Smoking Tobacco: Never Assessed Comments No Sex and Gender Information Value Date Recorded Sex Assigned at Not on file 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 He stated that patient was currently at school and will have her give the clinic a call back to schedule appointment. If patient callscan you schedule an IGY visit with a resident for fibroadenoma of right breast. Please and thanks. MA THERAPIST documented in this encounter Plan of Treatment Not on file documented as of this encounter Visit Diagnoses Not on filedocumented in this encounter Care Teams Billet Shearer Relationship Specialty Start Date End Date Macrela Hyatt MD PCP - General 09/09/20 documented as of this encounter
--- OUTSIDE RECORDS SUMMARY | 2024-05-20 19:27 | XMS_ITS | Encounter Summary ---
Author Organization [facility] Healthcare Address [address] [place] [address] Care Team Providers Care Fighter Pilot Name Role Phone Unavailable Primary Care Provider Unavailabl e Encounter Details Date Type Department Care Team (Late st Contact Info) Description 07/07/2008 5:51 PM FACILITIES CUSTODIAN - 07/07/2008 11:59 PM FACILITIES CUSTODIAN Hospital Encounter [facility] Marie Lafleur MD [address] [place] [id number] Dysuria Social History Tobacco Use Types Packs/Day Years Used Date Smoking Tobacco: Never Assessed Comments Unknown Sex and Gender Information Value Date Recorded Sex Assigned at Not on file Legal Sex Female 6:26 PM FACILITIES CUSTODIAN Gender Identity Female 02/09/2024 11:18 AM CDT Sexual Orientation Straight 02/09/2024 11 :18 AM CDT documented as of this encounter Plan of Treatment Not on file documented as of this encounter Visit Diagnoses Diagnosis Dysuria documented in this encounter
--- OUTSIDE RECORDS SUMMARY | 2024-05-20 19:27 | XMS_ITS | Encounter Summary ---
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 Sulma said the drainage has stopped as of last night and it is scabbing over. She is not having a fever/chills but says it feels a little warm overthe incision. Message sent to [facility] for recommendation. documented in this encounter Plan of Treatment Not on file documented as of this encounter Visit Diagnoses Not on filedocumented in this encounter Care Teams Pot Firer Relationship Specialty Start Date End Date Marcela Hyatt MD PCP - General 09/09/20 documented as of this encounter
--- OUTSIDE RECORDS SUMMARY | 2024-05-20 19:27 | XMS_ITS | Encounter Summary ---
Author Organization [facility] Healthcare Address [address] [place] [address] Care Team Providers Care Clothing Sales Assistant Name Role Phone Marcela Hyatt MD Primary Care Pro vider Reason for Visit * Auth/Cert (Routine) Specialty Diagnoses / Procedures Referred By Shimon t Referred To Contact Diagnoses Mass of right breast, unspecified quadrant Mass of right breast, unspecified quadrant [N63.10] Procedures OH EXC CYST/ABERRANT BREAST TISSUE OPEN 1/> LESION BIOPSY - BREAST Referral ID Status Reason Start Date Expiration Date Visits Re quested Visits Authorized [id number] 1 1 Encounter Details Date Type Department Care Team (Late st Contact Info) Description 12/11/2022 4:00 PM CDT - 12/11/2022 6:00 PM CDT Surgery [facility] Operating [facility] [address] [place] [id number] Deidre Caceres MD PhD [address] [facility] [phone] [place] [address] RIGHT BREAST EXCISIONAL BIOPSY OF MASSES X 3 Surgery Details Date/Time Status Location OR Service Patient Class Case Cl ass Case Type Trauma Case? 12/11/2022 4:00 PM Posted [facility] CAM OR POD 4 C Oncology Outpatient Elective Panel 1 Procedure LRB Anes Op Region Wound Class Comments RIGHT BREAST EXCISIONAL BIOPSY OF MASSES X 3 Right Monitor Anesthesia Care Breast Class I - Clean MASTOPEXY- CRESCENT Right General Breast Class I - Clean Surgeon Surgeon Role Service Panel Deidre Caceres MD PhD Primary Oncology 1 Madalyn Toledo MD Resident - Assisting Oncology 1 Kimberlee Kaminski MD Resident - Assisting General [place] [facility]gery 1 Special Needs Intraoperative US/ Faxitron/Trident documented in this encounter Social History Tobacco Use Types Packs/Day Years [...] on file Legal Sex Female 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 Gender Identity Female 02/09/2024 11:18 AM CDT Sexual Orientation Straight 02/09/2024 11 :18 AM CDT documented as of this encounter Last Filed Vital Signs Vital Sign Reading Time Taken Comments Blood Pressure 122/70 12/11/2022 2:20 PM CDT Pulse 76 12/11/2022 2:20 PM CDT Temperature - - Respiratory Rate 21 12/11/2022 2:20 PM CDT Oxygen Saturation 98% 12/11/2022 2:20 PM CDT Inhaled Oxygen Concentration - - Weight 65.8 kg (145 lb) 12/01/2022 4:40 PM CDT Height 167.6 cm (5' 6 ) 12/01/2022 4:40 PM CDT Body Mass Index 23.4 12/01/2022 4:40 PM CDT Body Mass Index Percentile 71.80% 12/01/2022 4:4 0 PM CDT Growth Chart: [facility] (Girls, 2- 20 Years) documented in this encounter Medications at Time of Discharge acetaminophen (TYLENOL) 500 mg tablet Take 2 tablets (1,000 mg total) by mouth every 6 (six) hours for 4 days 32 tablet 12/11/2022 3 docusate sodium (DOK) 100 mg tabletIndications:c onstipation Take 1 tablet (100 mg total) by mouth 2 (two) times a day for 5 days 10 tablet 12/11/2022 4 drospirenone-ethiny l estradioL (NALLELY DIMAS) 3-0.02 mg per tabletIndications:P regnancy Contraception Take 1 tablet by mouth daily 28 tablet 12 09/24/2022 4 ibuprofen 200 mg tab/cap Take 2 tablet/capsule (400 mg total) by mouth every 6 (six) hours as needed for pain or headaches 4 oxyCODONE (ROXICODONE) 5 mg immediate release tabletIndications:P ain Take 1 tablet (5 mg total) by mouth every 4 (four) hours as needed for pain 8 tablet 12/11/2022 4 documented as of this encounter Ordered Prescriptions Prescription Sig Dispense Quantity Refills Last Filled Start Date End Date docusate sodium (DOK) 100 mg tabletIndications: constipation Take 1 tablet (100 mg total) by mouth 2 (two) times a day for 5 days 10 tablet 12/11/2022 4 acetaminophen (TYLENOL) 500 mg tablet Take 2 tablets (1,000 mg total) by mouth every 6 (six) hours for 4 days 32 tablet 12/11/2022 3 oxyCODONE (ROXICODONE) 5 mg immediate release tabletIndications: Pain Take 1 tablet (5 mg total) by mouth every 4 (four) hours as needed for pain 8 tablet 12/11/2022 4 oxyCODONE (ROXICODONE) 5 mg immediate release tabletIndications: Pain Take 1 tablet (5 mg total) by mouth every 4 (four) hours as needed for pain (for break through pain) 8 tablet 12/11/2022 3 acetaminophen (TYLENOL) 500 mg tablet Take 2 tablets (1,000 mg total) by mouth every 6 (six) hours for 4 days 32 tablet 12/11/2022 3 documented in this encounter Discharge Disposition Disposition Code Departure Means Destination Comment s Discharge to home or self care documented in this encounter H&P Notes * Deidre Caceres MD PhD - 12/11/2022 3:35 PM CDT Images from the original note were not included. Chief complaint: Right breast mass removal Marcela Hyatt* requested that I see SUNG [...] represent a complicated cyst or cyst cluster. 10/13 US Guided Biopsy: Breast, right, 4:00 - 4 cm from nipple, ultrasound-guided biopsy fibroadenoma HPI : Patient is a 17 y.o. woman complaining of a mass in the right breast which she first felt in 2020. It has increased in size since she first felt it. . She was noted to have additional lesions of the right breast at the time of her examination in clinic. She presents today for excision. Patient denies any other masses, skin changes, nipple discharge or skin changes. 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 She is . She has used oral contraceptives inthe past and is currently using them . She has not used hormone replacement therapy in the past andis not currently using any. She is premenopausal . She reports a history biopsies to the right breast which revealed fibroadenoma. Past Medical History: Medical History History reviewed. No pertinent past medical history. Surgical History Past Surgical History: Procedure Laterality Date BREAST BIOPSY Right 10/13/2022 Medications: HOME MEDICATIONS : drospirenone-ethinyl estradioL (WING,KHANHANCLAYTON) 3-0.02 mg per tablet Allergies: No Known Allergies Social History Social History Tobacco Use Smoking status: Never Passive exposure: Never Smokeless tobacco: Never Substance and Sexual Activity Drug use: None Sexual activity: None Alcohol Use: Not on file Family History: Cancer-related family history is negative for Cancer. Review of systems: Pertinent items are noted in HPI. Exam Vital signs: She is Height: 167.6 cm (5' 6 ) tall and weighs Weight: 64.9 kg (143 lb) lbs. General: Well-developed and well-nourished. Neuro: Patient is awake and alert and cooperative. Psych: Appropriate mood and affect for this visit. HEENT: Normocephalic, atraumatic. Anicteric sclera, extraocular eye movements intact, hearing is grossly intact. No nasal discharge. Moist mucous membranes. Neck: Supple without overt masses or adenopathy. Respiratory: There is no obvious wheezing or dyspnea. No use of accessory muscles of respiration. Cardiovascular: Pulse is regular. No peripheral edema. No jugular venous distention. Gastrointestinal: Abdomen is soft without evidence of peritonitis. Lymphatics: There is no cervical, supraclavicular, or infraclavicular adenopathy. Skin: There are no worrisome skin lesions in the examined skin. Breasts: She has grade 1 ptosis. The breasts are normal in contour. Bra size 34A. Right Breast: There is no obvious skin changes, dimpling, nor retraction. There is a palpable dominant 3 cm mass at 4:00 with a smaller adjacent mass at 3:00 and a new 1 cm mass small mobile and rubbery at 10:00. The nipple and areola are without erosion, ulceration, or obvious discharge. Examination of the axillary tail and contents shows no concerning mass or adenopathy. Left Breast: There is no obvious skin changes, dimpling, nor retraction. There is no palpable dominant mass. The nipple and areola are without erosion, ulceration, or obvious discharge. Examination of the axillary tail and contents shows no concerning mass or adenopathy. Lab/Radiology/Diagnostic Review: I personally ordered and reviewed all of the imaging today. US Guided Breast Biopsy Right Addendum Date: 10/15/2022 Addendum: ADDENDUM: Pathology from biopsy of the right breast at 3:00 showed sclerosing adenosis, fibrocysticchange; please refer to pathology report for details. Pathology from biopsy of the right breast at 4:00 showed fibroadenoma; please refer to pathology report for details. Pathology at both sites is benign and concordant. Recommend continued clinical follow-up. Patient can return for screening mammogram at age 39. Results and recommendations were discussed with the patient by Randa Samuel RN, BSN on 10/15/2022. Electronically signed by: Leticia Long M.D. Result Date: 10/15/2022 Narrative: EXAMINATION: RIGHT BREAST VACUUM-ASSISTED CORE BIOPSY (2 SITES) UTILIZING SONOGRAPHIC GUIDANCE, PLACEMENT OF A BIOPSY TISSUE MARKER CLIP (2 sites) HISTORY: Abnormal breast imaging. 2 masses in the right breast Ultrasound guided core needle biopsy is requested to evaluate for malignancy. COMPARISON: 07/03/2022 PROCEDURE AND FINDINGS: The risks and potential benefits of the procedures were discussed with the patient and written informed consent was obtained. After sterile preparation of the skin, 1% lidocaine and 2% lidocaine with epinephrine were utilized for local anesthesia. A small skin incision was made with a #11 scalpel blade. Right breast 3:30, 4 cmfn: A 14G vacuum-assisted biopsy needle was then advanced through the skin incision to the edge of the lesion of interest at the 3:30 position from a lateral approach utilizing sonographic guidance. A total of 3 tissue cores were obtained through the lesion. An UltraClip ribbon-shaped tissue marker clip was then placed at the biopsy site. Hemostasis was achieved. Dermabond bandage and an ice pack were applied. There was no evidence of significant immediate complication. The patient was given verbal as well as written post procedural instructions prior to release from the department. The tissue cores were submitted to surgical pathology in formalin for histologic analysis. Right breast 4:00, 4 cmfn A 14G spring-loaded biopsy needle was then advanced through the skin incision to the edge of the lesion of interest atthe 4:00 position from a lateral approach utilizing sonographic guidance. A total of 3 tissue coreswere obtained through the lesion. An UltraClip wing-shaped tissue marker clip was then placed at the biopsy site. Hemostasis was achieved. Dermabond bandage and an ice pack were applied. There was noevidence of significant immediate complication. The patient was given verbal as well as written post procedural instructions prior to release from the department. The tissue cores were submitted to surgical pathology in formalin for histologic analysis. The attending radiologist, Dr. Leticia Long M.D., was present throughout the entire procedure. Impression: Successful core needle biopsy of the RIGHT breast (two sites). Pathology is pending. Electronically signed by: Leticia Long M.D. Pathology: I reviewed the pathology Taken:10/13/2022 Received:10/13/2022 Reported: 10/14/2022 Patient Type: [facility] Ancillary Service: Laboratory Location: Physician(s): Leticia Long M.D. Marcela Hyatt M.D. Diagnosis: A. Breast, right, 3:00 - 4 cm from nipple, ultrasound-guided biopsy - Sclerosing adenosis - Fibrocystic change - No evidence of atypia or malignancy B. Breast, right, 4:00 - 4 cm from nipple, ultrasound-guided biopsy - Fibroadenoma - No evidence of atypia or malignancy ASSESSMENT Right Breast Fibroadenoma 2.9 cm increasing in size PLAN:Margareth's right breast fibroadenoma is 2.9 cm and has increased in side of 1 cm in 12 months. At this point cannot exclude that she has a right breast phyllodes I recommended removal of the rightbreast 4:00 mass due to size and relative change in size. Patient agrees with surgical excision of the right breast 4:00 mass. Since there is a smaller mass just adjacent at 3:00 the plan is to remove this mass at the same time as well. She and her mom have considered and have decided to remove the10 o'clock lesion as well. She is marked and consented and ready to proceed with right breast excisional biopsies of masses. documented in this encounter Miscellaneous Notes * Op Note - Deidre Caceres MD PhD - 12/11/2022 5:28 PM CDT Operative Report SURGEON: Deidre Caceres MD PhD SURGICAL TEAM: Surgeon(s) and Role: * Deidre Caceres MD PhD - Primary * Kimberlee Kaminski MD - Resident - Assisting * Madalyn Toledo MD - Resident - Assisting DATE OF SURGERY : 12/11/2022 PREOPERATIVE DIAGNOSIS: Pre-op Diagnosis * Mass of right breast, unspecified quadrant [N63.10] POSTOPERATIVE DIAGNOSIS: Post-op Diagnosis * Mass of right breast, unspecified quadrant [N63.10] PROCEDURE: Right Breast Excisional Biopsy of Masses x 3 Right breast [place] Mastopexy INDICATION FOR PROCEDURE: Symptomatic growing right breast masses for excisional biopsy. To allow access to all 3 lesions without de-vascularizing the nipple areolar complex, a crescent mastopexy was performed. ANESTHESIA: Monitor Anesthesia Care OPERATIVE DETAILS After obtaining informed consent, the patient was brought into the operating room placed on procedure table in the supine position. A time-out was performed verifying correct patient, correct procedures, correct positioning, correct special equipment in the room. Preoperative antibiotics were givenand SCDs were placed on patient's legs for thromboprophylaxis. Monitor Anesthesia Care anesthesia was induced . The patient had previously identified the masses of interest in the preoperative area. The right breast was prepped and draped in usual sterile fashion. A crescent shaped incision around the superior medial aspect of the periareolar region was made with a 15 blade and brought down through the subcutaneous tissue using Bovie electrocautery. The crescent was de- epithelialized sharply with a 15 blade. The outer edge of the crescent was then incised. The capsule of the 4 o'clock lesion was encountered with deepening the incision inferomedially. The mass was dissected with combination of blunt and sharp dissection. Then an silk anchoring suture was placed on the lump of tissue, and the specimen was eviscerated from the cavity. It was marked with a short stitch superior, long stitchlateral. The specimen was then amputated posteriorly. The excision did not go down to pectoralis fascia. Xray confirmed this was the previously biopsied mass. There was dense mass like tissue just sup erior to the dominant mass which was resected and xray confirmed this to be the 330 o'clock lesion.This was marked with a short stitch superior and long stitch lateral. It was sent for permanent histologic section. Attention was then turned to the 10 o'clock lesion and the cavity was dissection was carried superior laterally. The capsule of the mass was entered and then the mass was dissected bluntly. An anchoring stitch was also placed in this mass but pulled through and disrupted the capsule. The mass was eviscerated and amputated posteriorly. The cavity was then anesthetized with 50 ml of1:! Mix of 0.5% Bupivacaine and 1% Lidocaine. Hemostasis was obtained. The cavity was copiously irrigated. Surgicel was placed for added hemostasis. The dermal layer which was de- epithelialized was used as autoderm and tacked under the leading edge of the outer cresent. The incision was then closed using 3- 0 Vicryl to approximate the dermal edge and 4- 0 Monocryl to approximate the subcuticularedge. Surgical glue was then applied. The procedure was concluded. All needle and sponge counts were reported correct x2. I was and present scrubbed for the entire procedure except the monocryl stitch. Estimated Blood Loss: 50 ml Urine output : Not measured Intraoperative Fluids: 1300 mls Blood/Blood Products Transfused: 0 mls Specimens: ID Type Source Tests Collected by Time Destination A : Right Breast 4 o'clock mass, short stitch superior, long stitch lateral Tissue Breast, excisional biopsy/ partial mastectomy SURGICAL PATHOLOGY Deidre Martines MD PhD 12/11/2022 1748 B : Right Breast 3:30 o'clock mass, short stitch superior, long stitch lateral Tissue Breast, excisional biopsy/ partial mastectomy SURGICAL PATHOLOGY Deidre Martines MD PhD 12/11/2022 1751 C : Right Breast 10:00 o'clock lesion, short stitch superior, long stitch lateral Tissue Breast, excisional biopsy/ partial mastectomy SURGICAL PATHOLOGY Deidre Caceres MD PhD 12/11/2022 1759 Complications: None Condition on Discharge from the operating room was stable Deidre Caceres MD PhD Date: 12/11/2022 Time: 6:30 PM TEACHING ATTESTATION : I was present and I participated in all portions of the procedure except monocryl suture and remained immediately available during all remaining portions of the case. * Pre-Procedure Instructions - Shani Ho NP - 12/02/2022 4:00 PM CDT [facility] Location: [facility] The night before your surgery: * Do not eat anything after midnight the night before your procedure. The morning of your surgery: * You may have clear liquids on your surgery day. You must stop drinking two hours before you arrive to the surgery facility. Acceptable clear liquids include water, clear sports drinks, black coffee, or clear soda. DO NOT drink any milk, creamer, or alcohol. * Your surgeon's office may have provided additional instructions or restrictions. Please follow those instructions. * You may brush your teeth and rinse your mouth out. * Do not wear jewelry, body piercings, makeup, hairpins, false eyelashes or contact lenses to the hospital. * Leave any valuables at home or with your family. * If you are still having menstrual cycles, you should come with a full bladder on the morning of surgery in order to provide a urine sample. Instructions For Your Medications: Pre-Surgery Instructions: Medication Instructions acetaminophen (TYLENOL) 500 mg tablet Take on day of surgery if needed drospirenone-ethinyl estradioL (WING,GIANVI) 3-0.02 mg per tablet Take as prescribed ibuprofen 200 mg tab/cap Stop taking 5 days prior to surgery General Instructions For Medications: * Stop all of these medications 5 days prior to your surgery: excedrin, motrin, advil, ibuprofen, aleve, naproxen, meloxicam, celebrex, celecoxib. For medications that you are instructed to take on the morning of surgery, take the medications with a few sips of water. Stop all of these medications 7-14 days prior to your surgery: Vitamin E, Herbal medicines, Diet Pills If you have pain, you may take tylenol (acetaminophen). Do not take more than 6 tablets or 3000 mg (3 g) within a 24 period. Call your surgeon and the CPAP clinic if any of the following happens before surgery: Any changes in your health You have a fever You have any signs of an infection (chest, urinary tract or tooth) You have been to the Emergency Room or were in the hospital You have started taking any new medications You have questions about a bowel prep or special diet before surgery You have symptoms of COVID-19 such as a new or worsening cough, shortness of breath, fever, body aches, loss of taste or smell, diarrhea or vomiting, or sore throat. You have a household contact with COVID-19. You test positive for COVID-19. * Pre-Procedure Instructions - Randa Nuñez RN - 12/01/2022 4:47 PM CDT [facility]) PRE-SURGICAL NURSING INSTRUCTIONS Telephone Assessment General Information Discussed with Patient: Surgery location provided to patient. Arrival time and surgical time will be provided to the patient by their surgeon. You should wear clothing that is clean, loose, comfortable and easy to get in and out of on the dayof surgery. You should remove nail coverings, artificial nails and nail wolof prior to the day of surgery. You should leave your valuables and any jewelry at home. No metal or piercings are allowed in the operating room. You should bring your insurance card, a photo ID (example: Public Health Professor's License) and a method of payment for any insurance copay, deductible or copay for discharge medications. You should bring a complete, up-to-date, list of all your medications on the day of surgery, including any over the counter medications or supplements you may take. Please note on your medication list, the last date & time you took each medication. The healthcare team, on the day of surgery, will ask for this information. You should bring your Advanced Directive and/or Living Will with you on the day of surgery if you have not verified a copy is already in your Epic Chart. If you are having surgery at [facility], please arrive on the day of surgery with the name and phone number of your local 24 hour pharmacy. Due to evening discharges, your routine pharmacy may be closed. In order to obtain your prescriptions that evening, your surgeon may need to send prescriptions to this pharmacy or have you take prescriptions to this pharmacy when you are discharged. Without this information, you may not be able to obtain your prescriptions that evening. A Guide for Patients Having Surgery: Your Pathway to Excellent Care OUR GOAL IS TO PROVIDE YOU WITH EXCELLENT CARE Use this guide to learn about what you can do before, during and after surgery to help your recovery. You are the most important person on your health care team. By becoming informed and involved, you can contribute to the success of your surgery. If your surgeon's directions are different than those in this guide, talk with your nurse or surgeon to confirm the information. It is important that you understand how to take care of yourself at home after surgery. Be sure to bring this guide with you on the day of surgery and take it home with you after surgery. Write down questions for your nurse or surgeon on the last page of this booklet. Important pages to be reviewed BEFORE surgery: Page 1: QR codes for Surgery Center maps Page 3: Types of Anesthesia Page 5: Tips for the day & night before surgery Page 6: When to stop eating BEFORE surgery and examples of clear liquids Page 7-10: Preventing Infection: Chlorhexidine Gluconate (CHG) Bathing Instructions You may access A Guide for Patients Having Surgery: Your Pathway to Excellent Care by the followinglink: [email or web address] How To Prepare Your Skin For Surgery Below is the Pre-Surgical Bathing Protocol you should follow for your surgery. If your surgeon provides you different bathing instructions, please follow your surgeon's orders. 2 Day CHG Bathing Protocol (no nasal ointment) PREVENTING INFECTION (DECOLONIZATION): Decolonization is the use of a topical antiseptic soap and sometimes a nasal ointment to remove bacteria (germs) from the skin's surface. Antiseptic soap: Chlorhexidine gluconate or CHG (brand name: Hibiclens??) Before surgery, your entire body must be thoroughly cleaned. CHG helps to reduce the bacteria on your skin. You may be given one or more bottles of CHG or you may be asked to obtain from your preferred pharmacy. Be sure to ask your pharmacist if you need help finding this product. SHOWERING WITH ANTISEPTIC SOAP (CHG) What You Need For Each Shower 60 mL (?? cup) of CHG 2 clean washcloths CHG Bathing Instructions First, shampoo and rinse your hair with your own shampoo (no conditioners). Do this so the antiseptic soap isn't washed off by your shampoo. Wash face with warm water. Turn off shower and stand away from the water. Use 2 clean washcloths to apply the antiseptic soap to all areas as described below: Pour 30 mL (1/8 cup) of CHG on washcloth #1: Using washcloth- start at jawline and firmly massage the soap into the skin in a circular motion to clean neck, shoulders, chest, back, both armpits, arms, hands and abdomen. Finish with legs and feet. Pour 30 mL (1/8 cup) of CHG on washcloth #2: Using washcloth- firmly massage the soap into the skinin a circular motion to clean groin area, perineum and buttocks. (Do not use CHG on genital area.) Arzate Points: The CHG antiseptic soap will not bubble or lather very much. If you get soap in your eyes, ears or mouth, rinse well with cool water. When finished, leave the soap on your skin for 2 minutes before rinsing. Dry off with a clean fresh towel. Wear clean clothes or pajamas to sleep in. After showering DO NOT put on deodorant, hair products or conditioners, lotions or creams, powders,Vaseline or any non-essential products. If you cannot reach the surgical site, such as the back, please have someone help you. Shaving: You may shave your face, legs and underarms during your evening shower before you apply the CHG antiseptic soap. Be careful not to cut or kathrine your skin. Avoid shaving on the day of surgery. 2-Day CHG Bathing Protocol The Evening Before Surgery: Take a shower with Antiseptic soap (CHG). Follow the steps for ???Showering with Antiseptic Soap (CHG)?? above. Change all linens on your bed so you are sleeping in clean fresh sheets and pillowcases. Remove nail coverings, artificial nails and nail wolof. The Morning of Surgery: Take a shower with Antiseptic soap (CHG). Follow the steps for ???Showering with Antiseptic Soap (CHG)?? above. Put clean clothes on after you shower. Travel/Exposure Screening: Travel Screening Have you traveled outside the [place] in the last 6 months?: No Exposure Screening Have you been exposed to anyone who is sick in the last 30 days?: No Have you been exposed to or tested positive for COVID-19 within the last 10 days?: No Infectious Disease Screening Are you having any of the following:: None As of 03/10/2022 any COVID TESTING required for surgery will be set up by your surgeon's office. Please reach out to your surgeon's office if you develop any COVID symptoms, test positive for COVID or are exposed to a COVID positive person. If you have questions, please call the CPAP Staff at [phone], Wednesday-Wednesday 8am-4:30pm. All patients should read the below section: COVID 19 Updates & Visitor Policy: Please access [email or web address] for the most updated information. Information on [facility]: Please view [email or web address] (Patient & Visitor Information) for additional details regarding Advanced Directive forms, AWARE, directions, parking information, lodging, Internet access, dining and more. Information on [facility] or [facility] ([facility]): Please view [email or web address] (Patient and Visitor Information) for parking/directions and more. For MyChart information, to activate account or password recovery, please go to [email or web address] or call [phone] (toll-free: [phone]). Information for Suicide Prevention: National Suicide Prevention Lifeline (0-538- 253-OXTI (9367)). Surgery Times: For patients having surgery @ [facility], [facility] or [facility] ([facility]), if your surgeon's office has not notified you of your surgery time by NOON THE BUSINESS DAY BEFORE your surgery, please call [phone] and ask for your surgeon's office Dr Caceres. * Perioperative Nursing Note - Randa Nuñez RN - 12/01/2022 4:45 PM CDT Center for Preoperative Assessment and Planning Perioperative Nursing Note Telephone Preoperative Evaluation ([facility]) - TELEPHONE ONLY, NO PHYSICAL EXAM Date: 12/01/22 Vitals: 12/01/22 1640 Weight: 65.8 kg (145 lb) Height: 167.6 cm (5' 6 ) CHEST CIRCUMFERENCE: NA Social History Tobacco Use Smoking Status Never Passive exposure: Never Smokeless Tobacco Never Substance and Sexual Activity Drug Use Never Outpatient Medications Marked as Taking for the 12/11/22 encounter (Hospital Encounter) Medication Sig Dispense Refill acetaminophen (TYLENOL) 500 mg tablet Take 2 tablets (1,000 mg total) by mouth every 6 (six) hours as needed for pain or headaches drospirenone-ethinyl estradioL (WIGN,GIANVI) 3-0.02 mg per tablet Take 1 tablet by mouth daily (Patient taking differently: Take 1 tablet by mouth nightly) 28 tablet 12 ibuprofen 200 mg tab/cap Take 2 tablet/capsule (400 mg total) by mouth every 6 (six) hours as needed for pain or headaches Implants Type Not Specified Bard Peripheral Vascular Ultraclip Bard 17ga 10cm 2 Trigger Permanent Ultrasound [id number] - [id number] - Implanted (Right) Inventory item: BARD PERIPHERAL VASCULAR Ultraclip Bard 17ga 10cm 2 Trigger Permanent Ultrasound [id number] Model/Cat number: [id number] Environmental Technical Officer: Bard Peripheral Vascular Device identifier: [id number] Device identifier type: GS1 As of 10/13/2022 Status: Implanted SKIN Piercings Remaining: Yes Wound (LDAs) Type of Wound (LDA): (denies) SCREENINGS Anette index score: 100 PATIENT CARE PLANNING Advance Directives (For Healthcare) Have you reviewed your Advance Directive and is it valid for this stay?: Not applicable Advance Directive: Patient does not have advance directive Communication/Video Surveillance Technician Needs Communication Needs: Glasses Assistive Devices/DME: Eyeglasses Discharge Planning Type of Residence: Private residence Living Arrangements: Parent Support Systems: Parent, Friends/neighbors Assistance Needed: her mother will be caring for her after surgery Patient expects to be discharged to:: Private residence 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 NO documented in this encounter Plan of Treatment Not on file documented as of this encounter Procedures Procedure Name Priority Date/Time Associated Diagnosis Comments SURGICAL PATHOLOGY Routine 12/11/2022 5:45 PM CDT Mass of right breast, unspecified quadrant MASTOPEXY 12/11/2022 5:04 PM CDT Mass of right breast, unspecified quadrant Special Needs Intraoperative US/ Faxitron/Trident BIOPSY - BREAST 12/11/2022 5:04 PM CDT Mass of right breast, unspecified quadrant Special Needs Intraoperative US/ Faxitron/Trident documented in this encounter Results * Surgical pathology (12/11/2022 5:45 PM CDT) Tissue (Breast, excisional biopsy/ partial mastectomy) 12/11/2022 5:45 PM CDT Tissue (Breast, excisional biopsy/ partial mastectomy) 12/11/2022 5:51 PM CDT Tissue (Breast, excisional biopsy/ partial mastectomy) 12/11/2022 5:57 PM CDT Narrative PATHOLOGY [facility] - 12/15/2022 11:02 AM CDT EPIC results best viewed via link to PDF [facility] [place] [address] Note to Patients: This report may contain a detailed description of human tissue sent by a health care provider to the laboratory for pathologic evaluation. The content of this report is essential for diagnosis and may provide important critical findings. This information may be unfamiliar to patients to review without a medical professional present. It is advised that the patient review this report in the presence of a health care provider who can answer questions and explain the details. SURGICAL PATHOLOGY REPORT FINAL Patient Name: ?? MARGARETH BROWN Gender: ??F : ??2005 (Age: 17) Address: ??[address] [place] [address] ??[id number] Hospital #: ??[id number] Taken:12/11/2022 Received:12/12/2022 Reported: 12/15/2022 Patient Type: [facility] SDS ?? Service: Surgery Location: Physician(s): ??Deidre Caceres M.D. Marcela Hyatt M.D. MD Kimberlee Dominique MD Diagnosis: A. ??Breast, right, 4:00, lumpectomy ? - Fibroadenoma ? - Biopsy site change ?? B. ??Breast, right, 3:30, lumpectomy ? - Fibroadenoma ? - Biopsy site change ?? C. ??Breast, right, 10:00, lumpectomy ? - Fibroadenoma fib/12/15/2022 11:02 By this signature, I attest that the above diagnosis is based upon my personal examination of the slides(and/or other material indicated in the diagnosis). Cinthia Travis M.D. Report Electronically Reviewed and Signed Out By ??Cinthia Travis M.D. 12/15/2022 11:02:38 Microscopic Description and [...] jars labeled with the patient's identifiers. A. ??Labeled Right breast 4 o? ? clock mass, short stitch superior long stitch lateral ?? -Collected: 1744 on 12/11/2022 -Received: 1746 on 12/11/2022 -Placed in formalin: ??on 12/11/2022 -Specimen dimensions: ? Medial to Lateral: 2.5 cm ? Superior to Inferior: ??2.5 cm ? Anterior to Posterior: ??2 cm -Weight: 7.6 g -Orientation: Short stitch superior long stitch lateral -Margins inked: ? Superior: Blue ? Inferior: ??Green ? Anterior: Yellow ? Posterior: ??Black ?? -Sectioned: Medial to lateral ?? -Number of slices: 5 -Gross findings: The specimen is a well-defined benson-white, indurated fibrous mass (2.5x2.5x2 cm). The mass has a benson-white, homogenous lobular cut surface with no gross hemorrhage or necrosis. ?? -Specimen radiographed: ??Yes -Radiograph findings: There is one clip in the specimen. ?? -Diagram: ??Yes ?? -Summary of sections: ? A1 Slice 1, medial margin radially sectioned ? A2-A4 Slice 2-4, mass entirely submitted ? A5 Slice 5, lateral margin radially sectioned. Jar: 0 B. ??Labeled Right breast 3:30 o? ? clock mass, short stitch superior long stitch lateral ?? -Collected: 174 on 12/11/2022 -Received: 175 on 12/11/2022 -Placed in formalin: ??on 12/11/2022 -Specimen dimensions: ? Medial to Lateral: 3 cm ? Superior to Inferior: ??2 cm ? Anterior to Posterior: ??1 cm -Weight: 2.8 g -Orientation: Short stitch superior long stitch lateral -Margins inked: ? Superior: Blue ? Inferior: ??Green ? Anterior: Yellow ? Posterior: ??Black ?? -Sectioned: Medial to lateral ?? -Number of slices: ?? -Gross findings: The specimen is an ill-defined benson-white, indurated fibrous mass (3x2x1 cm). The lesion has benson-white cut surface with no gross hemorrhage or necrosis. ?? -Specimen radiographed: ??Yes -Radiograph findings: There is one clip in the specimen. ?? -Diagram: ??Yes ?? -Summary of sections: ? B1 Slice 1, medial margin radially sectioned ? B2-B4 Slice 2-4, mass entirely submitted ? B5 Slice 5, lateral margin radially sectioned. Jar: 0 C. ??Labeled Right breast 10:00 o? ? clock lesion, short stitch superior long stitch lateral ?? -Collected: 1747 on 12/11/2022 -Received: 1757 on 12/11/2022 -Placed in formalin: ??on 12/11/2022 -Specimen dimensions: ? Medial to Lateral: 1.2 cm ? Superior to Inferior: ??2 cm ? Anterior to Posterior: ??1.9 cm -Weight: 3 g -Orientation: Short stitch superior long stitch lateral -Margins inked: ? Superior: Blue ? Inferior: ??Green ? Anterior: Yellow ? Posterior: ??Black ?? -Sectioned: Medial to lateral ?? -Number of slices: 4 ?? -Gross findings: The specimen is an ill-defined benson-white, indurated fibrous mass (1.2x2x1.9 cm). The lesion has benson-white, homogenous lobular cut surface with no gross hemorrhage or necrosis. ?? -Specimen radiographed: ??Yes -Radiograph finding ?? -Diagram: ??Yes ?? -Summary of sections: ? C1 Slice 1, medial margin radially sectioned ? C2-C3 Slice 2-3, mass entirely submitted ? C4 Slice 4, lateral margin radially sectioned. Jar: 0 12/14/2022 09:10 Gross Resident:Gavino Myers M.D. By this signature, I attest that the above diagnosis is based upon my personal examination of the slides(and/or other material). Addenda/Procedures The performance characteristics of some immunohistochemical stains, fluorescence in-situ hybridization tests and immunophenotyping by flow cytometry cited in this report (if any) were determined by the Surgical Pathology and Flow Cytometry Departments at [facility] as part of an ongoing quality assurance specialist program and in compliance with federally mandated regulations drawn from the Clinical Laboratory Improvement Act of 1988 (CLIA '88). ??Some of these tests rely on the use of analyte specific reagents and are subject to specific labeling requirements by the US Food and Drug Administration. ??Such diagnostic tests may only be performed in a facility that is certified by the Department of Health and Human Services as a high complexity laboratory under CLIA '88. ??The FDA has determined that such clearance or approval is not necessary. ??This test is used for clinical purposes. ??It should not be regarded as investigational or for research. ??Nevertheless, federal rules concerning the medical use of analyte specific reagents require that the following disclaimer be attached to the report: This test was developed and its performance characteristics determined by the Surgical Pathology and Flow Cytometry Departments of [facility]. ??It has not been cleared or approved by the [place]. S. Food and Drug Administration. IMAGES AND SCANNED DOCUMENTS, IF INCLUDED, ONLY VIEWABLE IN PDF VERSION OF REPORT us Deidre Caceres MD PhD LAB PATHO LOGY ORDERABLES Final Result PATHOLOGY [facility] 3rd Floor [place], [place] [phone] documented in this encounter Visit Diagnoses Diagnosis Mass of right breast, unspecified quadrant Mass of right breast, unspecified quadrant documented in this encounter Admitting Diagnoses Diagnosis Mass of right breast Lump or mass in breast documented in this encounter Administered Medications Inactive Administered Medications - up to 3 most recent administrations Medication Order MAR Action Action Date Dose Rate Site Lactated Ringer's (LR) infusion 30 mL/hr, intravenous, Continuous, Starting on Wed12/11/22 at 1430, Pre-Op New Bag 12/11/2022 5:19 PM CDT Restarted 12/11/2022 5:04 PM CDT Rate/Dose Verify 12/11/2022 4:59 PM CDT 30 mL/h r lidocaine (XYLOCAINE) 25 mL, BUPivacaine (MARCAINE) 25 mL solution As needed, Starting on Wed12/11/22 at 1820, Intra-Op Given 12/11/2022 6:20 PM CDT Surgical Site sodium chloride 0.9% irrigation As needed, Starting on Wed12/11/22 at 1627, Intra-Op Given 12/11/2022 4:27 PM CDT 1,000 mL Surgical Site sterile water irrigation As needed, Starting on Wed12/11/22 at 1628, Intra-Op Given 12/11/2022 4:28 PM CDT 1,000 mL Other (Comment) documented in this encounter Discontinued Medications Medication Sig Discontinue Reason Start Date End Da te acetaminophen (TYLENOL) 500 mg tablet Take 2 tablets (1,000 mg total) by mouth every 6 (six) hours for 4 days Stop Taking at Discharge 12/11/2022 12/11/2022 oxyCODONE (ROXICODONE) 5 mg immediate release tabletIndications:Charly n Take 1 tablet (5 mg total) by mouth every 4 (four) hours as needed for pain (for break through pain) Stop Taking at Discharge 12/11/2022 12/11/2022 acetaminophen (TYLENOL) 500 mg tablet Take 2 tablets (1,000 mg total) by mouth every 6 (six) hours as needed for pain or headaches Stop Taking at Discharge 12/11/2022 documented as of this encounter Historical Medications * This list may reflect changes made after this encounter. ibuprofen 200 mg tab/cap Take 2 tablet/capsule (400 mg total) by mouth every 6 (six) hours as needed for pain or headaches 4 acetaminophen (TYLENOL) 500 mg tablet Take 2 tablets (1,000 mg total) by mouth every 6 (six) hours as needed for pain or headaches 3 added in this encounter Active and Recently Administered Medications Times are shown in CDT. Scheduled Medication Order 12/09/2022 12/10/2022 12/11/2022 ceFAZolin (ANCEF) 2,000 mg/20 mL in sterile water (premix) 2,000 mg (COMPLETED) 2,000 mg, intravenous, at 400 mL/hr, Administer over 3 Minutes, Once, On Wed12/11/22 at 1430, For 1 dose, Pre-Op, Indications: Prophylaxis, Surgical 1706 (Given - Provid er: Camron Perez CRNA) Continuous Medication Order 12/09/2022 12/10/2022 12/11/2022 Lactated Ringer's (LR) infusion 30 mL/hr, intravenous, Continuous, Starting on Wed12/11/22 at 1430, Pre-Op 1413 (New Bag - Prov ider: Gabby Paniagua RN)1659 (Rate/Dose Verify - Provider: Camron Perez CRNA)1703 (Paused - Provider: Camron Perez CRNA - Comment: Switch to gravity)1704 (Restarted - Provider: Camron Perez CRNA)1719 (New Bag - Provider: Camron Perez CRNA)1839 (Stopped - Provider: Camron Perez CRNA) Lactated Ringer's (LR) infusion 125 mL/hr, intravenous, Continuous, Starting on Wed12/11/22 at 2000, Phase I, PRN Medication Order 12/09/2022 12/10/2022 12/11/2022 albuterol 2.5 mg/0.5 mL nebulizer solution 2.5 mg 2.5 mg, nebulization, Once as needed, wheezing, Starting on Wed12/11/22 at 1928, For 1 dose, Phase I, Notify Anesthesiologist. , Indications: Bronchospastic Pulmonary Disease fentaNYL (SUBLIMAZE) preservative free injection 50 mcg 50 mcg, intravenous, Every 10 min PRN, 1st line for pain, Starting on Wed12/11/22 at 1928, Phase I, Notify Anesthesiologist if total PACU dose reaches 100 mcg and pain score 5/10 or more., Indications: Pain hydrALAZINE (APRESOLINE) injection 5 mg 5 mg, intravenous, Administer over 2 Minutes, Every 15 min PRN, high blood pressure, Starting on Wed12/11/22 at 1928, Phase I, Max cumulative dose 20 mg. Dose if systolic BP greater than 180 AND heart rate less than 70. HYDROcodone-acetaminophen (NORCO) 5-325 mg per tablet 1 tablet 1 tablet, oral, Once as needed, 2nd line for pain, Starting on Wed12/11/22 at 1928, For 2 doses, Phase I, Indications: Pain HYDROmorphone (DILAUDID) injection 0.5 mg 0.5 mg, intravenous, Administer over 2 Minutes, Every 10 min PRN, other, pain, Starting on Wed12/11/22 at 1928, For 4 doses, Phase I insulin lispro (HumaLOG, ADMELOG) 100 unit/mL injection 0-5 Units 0-5 Units, subcutaneous, Once as needed, high blood sugar, Starting on Wed12/11/22 at 1928, For 1 dose, Phase I, Blood glucose mg/dL: 149 or less: No insulin 150-199: add 1 unit 200-249: add 2 units 250-299: add 3 units 300-349: add 4 units and notify physician for adjustment of insulin orders. 350-399: add 5 units and notify physician for adjustment of insulin orders. Over 400: Notify physician for adjustment of insulin orders. Do NOT hold for NPO Status, Indications: Stress Hyperglycemia labetaloL (NORMODYNE,TRANDATE) injection 5 mg 5 mg, intravenous, at 30 mL/hr, Administer over 2 Minutes, Every 10 min PRN, high blood pressure, Starting on Wed12/11/22 at 1928, Phase I, Max cumulative dose 20 mg. Dose if systolic blood pressure greater than 180 AND HR greater than 70. lidocaine (XYLOCAINE) 25 mL, BUPivacaine (MARCAINE) 25 mL solution (CANCELED) As needed, Starting on Wed12/11/22 at 1820, Intra-Op 1820 (Given - Provid er: Deidre Caceres MD PhD) naloxone (NARCAN) 0.4 mg/mL injection 0.04-0.4 mg 0.04-0.4 mg, intravenous, Once as needed, other, excessive sedation/respiratory depression, Starting on Wed12/11/22 at 1928, For 1 dose, Phase I, Dilute 0.4 mg with 9 mL NS (final concentration 0.04 mg/mL). For respiratory depression (respiratory rate less than 6), administer 0.4 mg IVP over 30 seconds. For excessive sedation administer 0.04 mg (1 mL) every 1 minute until desired level of alertness. For IV, administer over 30 seconds., Indications: Opioid Toxicity prochlorperazine (COMPAZINE) injection 10 mg 10 mg, intravenous, Administer over 2 Minutes, Once as needed, nausea, vomiting, Starting on Wed12/11/22 at 1928, For 1 dose, Phase I sodium chloride 0.9% irrigation (CANCELED) As needed, Starting on Wed12/11/22 at 1627, Intra-Op 1627 (Given - Provid er: Deidre Caceres MD PhD) sterile water irrigation (CANCELED) As needed, Starting on Wed12/11/22 at 1628, Intra-Op 1628 (Given - Provid er: Emma Sevilla RN - Comment: used to clean to and soak instruments) documented in this encounter Orders Medications Ordered That Brigido ht Not Have Been Administered Count Last Ordered Date First Ordered Date albuterol 2.5 mg/0.5 mL nebu lizer solution 2.5 mg 1 12/11/2022 Carrier Fluids for Secondary Infusion - 0.9% Sodium Chloride 1 12/11/2022 ceFAZolin (ANCEF) 2,000 mg/2 0 mL in sterile water (premix) 2,000 mg 1 12/11/2022 fentaNYL (SUBLIMAZE) preserv ative free injection 50 mcg 1 12/11/2022 hydrALAZINE (APRESOLINE) injection 5 mg 1 0 12/11/2022 HYDROcodone-acetaminophen (N ORCO) 5-325 mg per tablet 1 tablet 1 12/11/2022 HYDROmorphone (DILAUDID) injection 0.5 mg 1 12/11/2022 insulin lispro (HumaLOG, ADM ELOG) 100 unit/mL injection 0-5 Units 1 12/11/2022 labetaloL (NORMODYNE,TRANDAT E) injection 5 mg 1 12/11/2022 Lactated Ringer's (LR) infusion 1 naloxone (NARCAN) 0.4 mg/mL injection 0.04-0.4 mg 1 12/11/2022 prochlorperazine (COMPAZINE) injection 10 mg 1 12/11/2022 sodium chloride 0.9% flush 0.5-20 mL 1 11/15 Diet Count Last Ordered Date First Orde red Date ADULT DISCHARGE DIET 1 12/11/2022 Nursing Count Last Ordered Date First Orde red Date DISCHARGE ACTIVITY 4 12/11/2022 DISCHARGE CALL PROVIDER 6 12/11/2022 DISCHARGE DRESSING 6 12/11/2022 Discharge Count Last Ordered Date First Orde red Date DISCHARGE PATIENT 1 12/11/2022 documented in this encounter Care Teams Clothing Sales Assistant Relationship Specialty Start Date End Date Marcela Hyatt MD PCP - General 09/09/20 documented as of this encounter
--- OUTSIDE RECORDS SUMMARY | 2024-05-20 19:27 | XMS_ITS | Encounter Summary ---
Author Organization [facility] Healthcare Address [address] [place] [address] Care Team Providers Care Skein Dyer Name Role Phone Marcela Hyatt MD Primary Care Pro vider Reason for Visit * Reason Comments Test Results Right breast biopsy path results x2 from 10/13/22 Encounter Details Date Type Department Care Team ([facility] st Contact Info) Description 10/15/2022 Telephone [facility] ([facility]) [address] [place] [address] [phone] Randa Samuel RN Test Results (Right breast biopsy path results x2 from 10/13/22) Social History Tobacco Use Types Packs/Day Years [...] money to get more. 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 Mother verbalized understanding. documented in this encounter Plan of Treatment Not on file documented as of this encounter Visit Diagnoses Not on filedocumented in this encounter Care Teams Skein Dyer Relationship Specialty Start Date End Date Marcela Hyatt MD PCP - General 09/09/20 documented as of this encounter
--- OUTSIDE RECORDS SUMMARY | 2024-05-20 19:27 | XMS_ITS | Encounter Summary ---
Author Organization [facility] Healthcare Address [address] [place] [address] Care Team Providers Care Curer Foam Rubber Name Role Phone Marcela Hyatt MD Primary Care Pro vider Reason for Visit * Auth/Cert (Routine) Specialty Diagnoses / Procedures Referred By Shimon t Referred To Contact Diagnoses Mass of right breast, unspecified quadrant Mass of right breast, unspecified quadrant [N63.10] Procedures DE EXC CYST/ABERRANT BREAST TISSUE OPEN 1/> LESION BIOPSY - BREAST Referral ID Status Reason Start Date Expiration Date Visits Re quested Visits Authorized [id number] 1 1 Encounter Details Date Type Department Care Team (Late st Contact Info) Description 12/11/2022 4:59 PM CDT Anesthesia Event [facility] ([facility]) [address] [place] [address] Robert Pretty MD [address] [place] [address] Shani Ho, MARCOS [address] [facility] [address] [address] Anesthesia Record Procedure Summary Procedure Name Responsible Anesthesiologist Anesthesia Start Time Anesthesia Stop Time RIGHT BREAST EXCISIONAL BIOPSY OF MASSES X 3 (Right: Breast) Robert Pretty MD 12/11/22 1659 12/11/22 1853 Events Date Time Event Comment 12/11/2022 1348 In Preop 1516 1659 An Start 1704 In Room 1704 An Start Data 1709 An Induction The patient was reevaluated immediately before moderate or deep sedation use and before anesthesia induction. 1712 Start Supplemental O2 1712 Anesthesia Ready 1728 Proc Start 1728 Incision Start 1843 Proc Fin 1847 an stop data 1848 Out of Room 1853 Handoff to RN I completed my handoff to the receiving nurse during which we: 1. Patient identified 2. Responsible provider identified 3. Pertinent medical history reviewed 4. Procedure type and surgical course discussed 5. Intraoperative anesthetic management and any significant issues discussed 6. Expectations and concerns for postop period discussed 7. Questions solicited from receiving nurse 8. Patient disposition at the time of handoff: No value filed. 1852 An Stop Meds Name Total midazolam PF 3 mg lidocaine (cardiac) syringe 2 % 60 mg propofol 582.33 mg fentaNYL 100 mcg ceFAZolin (ANCEF) 2,000 mg/20 mL in ster ile water (premix) 2,000 mg 2,000 mg dexmedeTOMIDine 80mcg/20mL (4 mcg/mL) 28 mcg Lactated Ringer's (LR) infusion 1,300 mL * Agents Name O2% N2O O2 * Blood No blood administrations on file. Lines, Drains, and Airways Type Details Placement Removal Peripheral IV Placement Date: 12/11/22; Placement Time: 1410; Orientation: Left; Location: Antecubital; Inserted by: ev paniagua rn; Removal Date: 12/11/22; Removal Time: 193512/11/22 141 by Gabby Paniagua RN 12/11/22 193 by Thaddeus Coleman, ASHLEY RETIRED Surgical Site 12/11/22; 1630; Right; Breast; 04/18/24 (Retired LDA, Removed/Completed by [employer] with LDA Utility); 1213 (Retired LDA, Removed/Completed by [employer] with LDA Utility) 12/11/22 1630 by Randa Duncan, ASHLEY 04/18/24 1213 by Discharge Provider, Automatic documented in this encounter Social History Tobacco [...] file 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 Gender Identity Female 02/09/2024 11:18 AM CDT Sexual Orientation Straight 02/09/2024 11 :18 AM CDT documented as of this encounter OR Notes * Anesthesia Postprocedure Evaluation - Robert Pretty MD - 12/11/2022 7:22 PM CDT Patient: Sulma Cardona Procedure Summary Date: 12/11/22 Room / Location: [facility] CAM OR POD 4 ROOM C / [facility] CAM OR POD 4 Anesthesia Start: 1658 Anesthesia Stop: 1852 Procedures: RIGHT BREAST EXCISIONAL BIOPSY OF MASSES X 3 (Right: Breast) MASTOPEXY- CRESCENT (Right: Breast) Diagnosis: Mass of right breast, unspecified quadrant (Mass of right breast, unspecified quadrant [N63.10]) Surgeons: Deidre Caceres MD PhD Responsible Provider: Robert Pretty MD Anesthesia Type: MAC ASA Status: 2 Anesthesia Type: MAC Last vitals BP 113/73 Pulse 65 Temp 36.2 ??C (97.2 ??F) (Temporal) Comment (Src): Simultaneous filing. Usermay not have seen previous data. Resp 21 SpO2 100% Anesthesia Post Evaluation Patient location during evaluation: PACU Patient participation: complete - patient participated Level of consciousness: fully awake Pain score: 0 Pain management: adequate Airway patency: adequate and patent Cardiovascular status: acceptable and hemodynamically stable Respiratory status: acceptable and room air Hydration status: acceptable Pt is: normothermic Nausea/Vomiting status: none No notable events documented. * Anesthesia Preprocedure Evaluation - Barb Martinez MD - 12/02/2022 4:07 PM CDT Images from the original note were not included. [facility] for Preoperative Assessment and Planning Preoperative Evaluation Record Evaluation type/location: TPAP from [facility] Planned procedure site: [facility] CAM OR (Pod 4) Date: 12/02/22 Anesthesia Evaluation Sulma Cardona is a 17 y.o. female Procedure(s): BIOPSY - BREAST Pre-Op Diagnosis Codes: * Mass of right breast, unspecified quadrant [N63.10] HISTORY HPI Sulma Cardona is an 17 year old female who is being evaluated prior to undergoing a right breastbiopsy for a right breast mass. Patient reports she first noticed bump on R breast several years ago and she has been followed with CYBER SECURITY INSTRUCTOR (Dr. Cespedes). Most recently patient had bilateral breast US on 07/03/22 that showed 2.9 cm mass in R breast (4 o'clock) increased in size and 1.0 cm mass in R breast (3 o'clock). BI-RADS 4A and US guided biopsy was recommended. Past Medical History Information obtained from: patient and chart. Neurological Pertinent negatives: neuromuscular disease; CVA/stroke and TIA Cardiovascular Pertinent negatives: hypertension ; CAD ; [place] ; CABG ; valvular heart disease; atrial fibrillation; pacemaker/ICD; DVT/PE; negative for CHF; drug-eluting stent(s) and bare metal stent(s) Respiratory Pertinent negatives: COPD; sleep apnea (GENTRY); pulmonary hypertension; no O2 use outside the hospital and non-smoker Hepatic / Heme Pertinent negatives: liver disease Renal / Pertinent negatives: renal disease and dialysis Endocrine / Other Pertinent negatives: diabetes mellitus; thyroid disease; cancer history; transplanted organ and infectious disease Functional Capacity Functional capacity: 4-6 METs Comments: Pt states they are able to walk 4 city blocks and climb 2 flights of stairs at a moderatepace with no SOB or CP. Day of Surgery assessments + Possibility of assessed (LMP 11/19-11/22, DOS hCG ordered) Review of Systems Pertinent negatives: productive cough; SOB; recent cold/flu; fever; chest pain; orthopnea; PND; previous transfusion; bleeding problems and syncope Comments: Pt denies s/s of symptoms of UTI at this time. PAT Summary and Plans Cardiac risk classification of planned procedure: low cardiac risk. Preoperative assessment status: complete. Additional comments: Sulma Cardona is a 17 y.o. female who is being evaluated prior to undergoing a low cardiac risk surgery. Revised Cardiac Risk Index factors are (none) for a total RCRI of 0 out of 6. Functional capacity is 4-6 METs. Preliminary Obstructive sleep apnea (GENTRY) screening status is STOP-BANG incomplete but suspected wan 0-2 suggesting low risk for GENTRY. Neck circumference pending.. This assessment was performed via telephone. Therefore the physical exam has been deferred to the day of surgery team. The patient was provided with preoperative instructions for their medications. Patient instructions were provided electronically sent via [employer]. Patient verbalized understanding of preoperative plan. Blood bank needs for day of procedure: No type and screen needed Pending labs/tests include: None DOS: urine hCG Preoperative evaluation performed by Shani Ho NP on 12/02/22 at 4:14 PM TPAP assessment complete. . Patient Active Problem List Diagnosis Healthcare maintenance Encounter for general counseling and advice on contraceptive management Mass of right breast History reviewed. No pertinent past medical history. Past Surgical History: Procedure Laterality Date BREAST BIOPSY Right 10/13/2022 TONSILLECTOMY 2017 OB History No obstetric history on file. No Known Allergies Med List Status: Nurse Complete Set By: Randa Nuñez RN at 12/01/2022 4:37 PM Taking? Last Dose Start Date End Date Provider acetaminophen (TYLENOL) 500 mg tablet 11/30/2022 -- -- Larry Wagner MD drospirenone-ethinyl estradioL (NALLELY DIMAS) 3-0.02 mg per tablet 11/30/2022 09/24/22 09/24/23 Lay Sandoval MD Take 1 tablet by mouth daily Patient taking differently: Take 1 tablet by mouth nightly ibuprofen 200 mg tab/cap Past Month -- -- Larry Wagner MD No current facility-administered medications for this encounter. Current Outpatient Medications: acetaminophen (TYLENOL) 500 mg tablet drospirenone-ethinyl estradioL (WINGGIANCLAYTON) 3-0.02 mg per tablet ibuprofen 200 mg tab/cap Social History Tobacco Use Smoking Status Never Passive exposure: Never Smokeless Tobacco Never Alcohol Use: Not on file Substance and Sexual Activity Drug Use Never Family History Problem Relation Age of Onset Cancer Neg Hx Anesthesia problems Neg Hx There were no vitals filed for this visit. Relevant diagnostics: ECG(s): 12/04/2018 ECG HR 56 SB Echocardiogram(s): N/A Stress test(s): N/A Cardiac catheterization(s): N/A PFT(s): N/A Vascular studies: N/A Other: 11/23/2028 CXR IMPRESSION: No acute cardiopulmonary abnormality. PT: No results found for requested labs within last 30 days. INR: No results found for requested labs within last 30 days. APTT: No results found for requested labs within last 30 days. Hgb A1C: No results found for requested labs within last 30 days. CBC RBC: No results found for requested labs within last 30 days. RDW: No results found for requested labs within last 30 days. MCHC: No results found for requested labs within last 30 days. MCH: No results found for requested labs within last 30 days. MCV: No results found for requested labs within last 30 days. Hct: No results found for requested labs within last 30 days. Hgb: No results found for requested labs within last 30 days. WBC: No results found for requested labs within last 30 days. MPV: No results found for requested labs within last 30 days. Platelets: No results found for requested labs within last 30 days. RDW CV: No results found for requested labs within last 30 days. RDW Sd: No results found for requested labs within last 30 days. BMP Glucose: No results found for requested labs within last 30 days. Calcium: No results found for requested labs within last 30 days. Sodium: No results found for requested labs within last 30 days. Potassium: No results found for requested labs within last 30 days. CO2: No results found for requested labs within last 30 days. Chloride: No results found for requested labs within last 30 days. BUN: No results found for requested labs within last 30 days. Creatinine: No results found for requested labs within last 30 days. Anette index score: 100 DOS Physical Exam Medical history, medications, and allergies reviewed. Attestation: This PAT evaluation Airway Exam: Mallampati: II Cervical ROM: FROM Cardiovascular Exam: Rate: regular Rhythm: regular Pulmonary Exam: LCTA, bilat Anesthesia Plan ASA 2 My patient is approved for the Anesthesia Controlled Medication protocol when under care of a TOOL AND DIE DESIGNER Planned anesthesia: MAC Induction: Induction: intravenous. Postoperative Plan: Patient's planned disposition post procedure is Outpatient. Informed Consent: Discussed plan with TOOL AND DIE DESIGNER. Anesthesia plan and risks discussed with patient. Consent and Attending signature: I and/or my designee have discussed the anesthesia plan, benefits, possible alternatives, parental presence at time of induction (if indicated), and clinically relevant risks that may include dental injury, unintentional awareness, and/or other complications. The patient and/or parent/legal guardian understand, and agree to proceed. All questions answered. documented in this encounter Plan of Treatment Not on file documented as of this encounter Visit Diagnoses Not on filedocumented in this encounter Administered Medications Inactive Administered Medications - up to 3 most recent administrations Medication Order MAR Action Action Date Dose Rate Site ceFAZolin (ANCEF) 2,000 mg/20 mL in sterile water (premix) 2,000 mg 2,000 mg, intravenous, at 400 mL/hr, Administer over 3 Minutes, Once, On Wed12/11/22 at 1430, For 1 dose, Pre-Op, Indications: Prophylaxis, SurgicalIndications:Prophylaxis, Surgical Given 12/11/2022 5:06 PM CDT 2,000 mg dexmedeTOMIDine (PRECEDEX) 80 mcg/20 mL (4 mcg/mL) in sodium chloride 0.9% (premix) intravenous, As needed, Starting on Wed12/11/22 at 1659, Anesthesia Intra-op Given 12/11/2022 5:54 PM CDT 4 mcg Given 12/11/2022 5:30 PM CDT 4 mcg Given 12/11/2022 5:11 PM CDT 8 mcg fentaNYL (SUBLIMAZE) preservative free injection intravenous, As needed, Starting on Wed12/11/22 at 1708, Anesthesia Intra-op Given 12/11/2022 5:28 PM CDT 50 mcg Given 12/11/2022 5:08 PM CDT 50 mcg Lactated Ringer's (LR) infusion 30 mL/hr, intravenous, Continuous, Starting on Wed12/11/22 at 1430, Pre-Op New Bag 12/11/2022 5:19 PM CDT Restarted 12/11/2022 5:04 PM CDT Rate/Dose Verify 12/11/2022 4:59 PM CDT 30 mL/h r lidocaine (cardiac) (XYLOCAINE) preservative free injection intravenous, As needed, Starting on Wed12/11/22 at 1710, Anesthesia Intra-op, Indications: Ventricular ArrhythmiasIndications:Ve ntricular Arrhythmias Given 12/11/2022 5:10 PM CDT 60 mg midazolam (VERSED) 2 mg/2 mL preservative free injection intravenous, Administer over 2 Minutes, As needed, Starting on Wed12/11/22 at 1659, Anesthesia Intra-op Given 12/11/2022 4:59 PM CDT 3 mg propofoL (DIPRIVAN) 10 mg/mL IV intravenous, Continuous PRN, Starting on Wed12/11/22 at 1709, Anesthesia Intra-op Rate/Dose Change 12/11/2022 6:17 PM CDT 50 mcg/kg/min 19.74 mL/hr Rate/Dose Change 12/11/2022 5:45 PM CDT 75 mcg/kg/min 29.6 1 mL/hr Rate/Dose Change 12/11/2022 5:37 PM CDT 100 mcg/kg/min 39. 48 mL/hr documented in this encounter Care Teams Curer Foam Rubber Relationship Specialty Start Date End Date Marcela Hyatt MD PCP - General 09/09/20 documented as of this encounter
--- OUTSIDE RECORDS SUMMARY | 2024-05-20 19:27 | XMS_ITS | Encounter Summary ---
Author Organization [facility] Address [address] [place] [address] Phone Care Team Providers Care Highway Patrol Pilot Name Role Phone Marcela Hyatt MD Primary Care Pro vider Encounter Details Date Type Department Care Team (Late st Contact Info) Description 07/13/2022 Orders Only [facility] Surgery [address] [facility] Advanced [facility] 5th [place] [address] [place] [id number] Abbey Rossi, PRINT SHOP HELPER [address] [place] [address] Mass of right breast, unspecified quadrant (Primary Dx) Social History Tobacco Use Types Packs/Day Years Used Date Smoking Tobacco: Never Assessed Comments No Sex and Gender Information Value Date Recorded Sex Assigned at Not on file 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
--- OUTSIDE RECORDS SUMMARY | 2024-05-20 19:27 | XMS_ITS | Encounter Summary ---
Author Organization [facility] Healthcare Address [address] [place] [address] Care Team Providers Care Silver Plater Name Role Phone Marcela Hyatt MD Primary Care Pro vider Reason for Visit * Auth/Cert (Routine) Specialty Diagnoses / Procedures Referred By Contac t Referred To Contact Diagnoses Mass of right breast, unspecified quadrant Mass of right breast, unspecified quadrant [N63.10] Procedures [place] EXC CYST/ABERRANT BREAST TISSUE OPEN 1/> LESION BIOPSY - BREAST Referral ID Status Reason Start Date Expiration Date Visits Re quested Visits Authorized [id number] 1 1 Encounter Details Date Type Department Care Team (Late st Contact Info) Description 12/11/2022 1:37 PM CDT - 12/11/2022 7:38 PM CDT Hospital Encounter [facility] Operating Room [facility] [address] [place] [address] Deidre Caceres MD PhD [address] [facility] [phone] [place] [address] Mass of right breast, unspecified quadrant Discharge Disposition: Discharge [...] on file 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 Gender Identity Female 02/09/2024 11:18 AM CDT Sexual Orientation Straight 02/09/2024 11 :18 AM CDT documented as of this encounter Last Filed Vital Signs Vital Sign Reading Time Taken Comments Blood Pressure 121/73 12/11/2022 7:20 PM CDT Pulse 59 12/11/2022 7:25 PM CDT Temperature 36.2 ??C (97.2 ??F) 12/11/2022 6:51 PM CD T Respiratory Rate 20 12/11/2022 7:25 PM CDT Oxygen Saturation 99% 12/11/2022 7:25 PM CDT Inhaled Oxygen Concentration - - Weight 65.8 kg (145 lb) 12/01/2022 4:40 PM CDT Height 167.6 cm (5' 6 ) 12/01/2022 4:40 PM CDT Body Mass Index 23.4 12/01/2022 4:40 PM CDT Body Mass Index Percentile 71.80% 12/01/2022 4:4 0 PM CDT Growth Chart: [facility] (Girls, 2- 20 Years) documented in this [...] skin changes, nipple discharge or skin changes. 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 [...] 10/13/2022 Medications: HOME MEDICATIONS : drospirenone-ethinyl estradioL (NALLELY DIMAS) 3-0.02 mg per tablet Allergies: No Known [...] pathology Taken:10/13/2022 Received:10/13/2022 Reported: 10/14/2022 Patient Type: [facility] Ancillary Service: Laboratory Location: Physician(s): Dorothy Glasgow M.D. Diagnosis: A. Breast, right, 3:00 - [...] Biopsy of Masses x 3 Right breast Goodrich Mastopexy INDICATION FOR PROCEDURE: Symptomatic growing right [...] added hemostasis. The dermal layer which was de-epithelialized was used as autoderm and tacked under the leading edge of the outer cresent. The incision was then closedusing 3- 0 Vicryl to approximate the dermal edge and 4- 0 Monocryl to approximate the subcuticular edge. Surgical glue was then applied. The procedure was concluded. All needle and sponge counts werereported correct x2. I was and present scrubbed [...] SURGICAL PATHOLOGY Deidre Martines MD PhD 12/11/2022 1740 B : Right Breast 3:30 o'clock mass, short stitch superior, long stitch lateral Tissue Breast, excisional biopsy/ partial mastectomy SURGICAL PATHOLOGY Deidre Martines MD PhD 12/11/2022 1757 C : Right Breast 10:00 o'clock lesion, short stitch superior, long stitch lateral Tissue Breast, excisional biopsy/ partial mastectomy SURGICAL PATHOLOGY Deidre Caceres MD PhD 12/11/2022 175 Complications: None Condition on Discharge from the operating room was stable Deidre Caceres MD PhD Date: 12/11/2022 Time: 6:30 PM TEACHING ATTESTATION : I was present and I participated in all portions of the procedure except monocryl suture and remained immediately available during all remaining portions of the case. * Pre-Procedure Instructions - Shani Ho, MARCOS - 12/02/2022 4:00 PM CDT Center for Preoperative Assessment and Planning CPAP Clinic Location: [facility] The night before your surgery: [...] remove nail coverings, artificial nails and nail [facility] prior to the day of surgery. You should leave your valuables and any jewelry at home. No metal or piercings are allowed in the operating room. You should bring your insurance card, a photo ID (example: Lead Java Developer Architect's License) and a method of payment for [...] Chart. If you are having surgery at [facility], please arrive on the day of surgery [...] Pathway to Excellent Care by the followinglink: [email or web address] How To Prepare Your Skin For Surgery [...] Remove nail coverings, artificial nails and nail [facility]. The Morning of Surgery: Take a shower [...] questions, please call the CPAP Staff at [phone], Wednesday-Wednesday 8am-4:30pm. All patients should read the below section: COVID 19 Updates & Visitor Policy: Please access [email or web address] for the most updated information. Information on [facility] & the Orthopedic Center: Please view [email or web address] (Patient & Visitor Information) for additional details regarding Advanced Directive forms, AWARE, directions, parking information, lodging, Internet access, dining and more. Information on [facility] or [facility] ([facility]): Please view [email or web address] (Patient and Visitor Information) for parking/directions and more. For MyChart information, to activate account or password recovery, please go to [email or web address] or call [phone] (toll-free: [phone]). Information for Suicide Prevention: National Suicide Prevention Lifeline (4-983- 219-HGVP (4140)). Surgery Times: For patients having surgery @ [facility] or [facility] ([facility]), if your surgeon's office has not notified you of your surgery time by NOON THE BUSINESS DAY BEFORE your surgery, please call [phone] and ask for your surgeon's office Dr Caceres. * Perioperative Nursing Note - Randa Nuñez, ASHLEY - 12/01/2022 4:45 PM CDT Center for Preoperative Assessment and Planning Perioperative Nursing Note Telephone Preoperative Evaluation ([facility]) - TELEPHONE ONLY, NO PHYSICAL EXAM [...] needed for pain or headaches drospirenone-ethinyl estradioL (WINGNALLELY Johnson) 3-0.02 mg per tablet Take 1 tablet by mouth daily (Patient taking differently: Take 1 tablet by mouth nightly) 28 tablet 12 ibuprofen 200 mg tab/cap Take 2 tablet/capsule (400 mg total) by mouth every 6 (six) hours as needed for pain or headaches Implants Type Not Specified Bard Peripheral Vascular Ultraclip Bard 17ga 10cm 2 Trigger Permanent Ultrasound [id number] - [id number] - Implanted (Right) Inventory item: BARD PERIPHERAL VASCULAR Ultraclip Bard 17ga 10cm 2 Trigger Permanent Ultrasound [id number] Model/Cat number: [id number] Dental Technologist: Bard Peripheral Vascular Device identifier: [id number] Device identifier type: GS1 As of 10/13/2022 Status: Implanted SKIN Piercings Remaining: Yes Wound (LDAs) Type of Wound (LDA): (denies) SCREENINGS Anette index score: 100 PATIENT CARE PLANNING Advance Directives (For Healthcare) Have you reviewed your Advance Directive and is it valid for this stay?: Not applicable Advance Directive: Patient does not have advance directive 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 Plate 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 Needs Communication Needs: Glasses Assistive Devices/DME: Eyeglasses Discharge Planning Type of Residence: Private residence Living Arrangements: Parent Support Systems: Parent, Friends/neighbors Assistance Needed: her mother will be caring for her after surgery Patient expects to be discharged to:: Private residence 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 documented in this encounter Plan of [...] mastectomy) 12/11/2022 5:57 PM CDT Narrative PATHOLOGY [facility] - 12/15/2022 11:02 AM CDT EPIC results best viewed via link to PDF [facility] [place] [address] Note to Patients: This report may contain [...] ??F : ??2005 (Age: 17) Address: ??[address] [place] [address] ??[id number] Hospital #: ??[id number] Taken:12/11/2022 Received:12/12/2022 Reported: 12/15/2022 Patient Type: [facility] [...] -Gross findings: The specimen is a well-defined bneson-white, indurated fibrous mass (2.5x2.5x2 cm). The mass [...] stitch superior long stitch lateral ?? -Collected: 1746 on 12/11/2022 -Received: 175 on 12/11/2022 -Placed [...] 4, lateral margin radially sectioned. Jar: 0 /12/14/2022 09:10 Gross Resident:Gavino Myers M.D. By this signature, I attest that the above diagnosis is based upon my personal examination of the slides(and/or other material). Addenda/Procedures The performance characteristics of some immunohistochemical stains, fluorescence in-situ hybridization tests and immunophenotyping by flow cytometry cited in this report (if any) were determined by the Surgical Pathology and Flow Cytometry Departments at [facility] as part of an ongoing quality assurance supervisor final program and in compliance with federally mandated [...] Surgical Pathology and Flow Cytometry Departments of [facility]. ??It has not been cleared or approved by the U. S. Food and Drug Administration. IMAGES AND SCANNED DOCUMENTS, IF INCLUDED, ONLY VIEWABLE IN PDF VERSION OF REPORT us Deidre Caceres MD PhD LAB PATHO LOGY ORDERABLES Final Result PATHOLOGY [facility] [address] [place], [place] [phone] documented in this encounter Visit Diagnoses Diagnosis Mass of right breast, unspecified quadrant documented [...] 12/11/2022 4:59 PM CDT 30 mL/h r documented in this encounter Discontinued Medications Medication [...] line for pain, Starting on Wed12/11/22 at 1927, Phase I, Notify Anesthesiologist if total PACU dose reaches 100 mcg and pain score 5/10 or more., Indications: Pain hydrALAZINE (APRESOLINE) injection 5 mg 5 mg, intravenous, Administer over 2 Minutes, Every 15 min PRN, high blood pressure, Starting on Wed12/11/22 at 192, Phase I, Max cumulative dose 20 mg. Dose if systolic BP greater than 180 AND heart rate less than 70. HYDROcodone-acetaminophen (NORCO) 5-325 mg per tablet 1 tablet 1 tablet, oral, Once as needed, 2nd line for pain, Starting on Wed12/11/22 at 1927, For 2 doses, Phase I, Indications: Pain HYDROmorphone (DILAUDID) injection 0.5 mg 0.5 mg, intravenous, Administer over 2 Minutes, Every 10 min PRN, other, pain, Starting on Wed12/11/22 at 1928, For 4 doses, Phase I insulin lispro (HumaLOG, ADMELOG) 100 unit/mL injection 0-5 Units 0-5 Units, subcutaneous, Once as needed, high blood sugar, Starting on Wed12/11/22 at 1927, For 1 dose, Phase I, Blood glucose [...] 1 12/11/2022 Lactated Ringer's (LR) infusion 1 lidocaine (XYLOCAINE) 25 mL, BUPivacaine (MARCAINE) 25 mL solution 1 12/11/2022 naloxone (NARCAN) 0.4 mg/mL injection 0.04-0.4 mg 1 12/11/2022 prochlorperazine (COMPAZINE) injection 10 mg 1 12/11/2022 sodium chloride 0.9% flush 0.5-20 mL 1 11/15 sodium chloride 0.9% irrigation 1 sterile water irrigation 1 12/11/2022 Diet Count Last Ordered Date First Orde red Date ADULT DISCHARGE DIET 1 12/11/2022 Nursing Count Last Ordered Date First Orde red Date DISCHARGE ACTIVITY 4 12/11/2022 DISCHARGE CALL PROVIDER 6 12/11/2022 DISCHARGE DRESSING 6 12/11/2022 Discharge Count Last Ordered Date First Orde red Date DISCHARGE PATIENT 1 12/11/2022 documented in this encounter Care Teams Silver Plater Relationship Specialty Start Date End Date Marcela Hyatt MD PCP - General 09/09/20 documented as of this encounter
--- OUTSIDE RECORDS SUMMARY | 2024-05-20 19:27 | XMS_ITS | Encounter Summary ---
Author Organization [facility] Healthcare Address [address] [place] [address] Care Team Providers Care Ground Intelligence Officer Name Role Phone Marcela Hyatt MD Primary Care Pro vider Reason for Referral * Diagnostic Imaging (Routine) - Closed Specialty Diagnoses / Procedures Referred By Shimon hale Referred To Contact Diagnoses Abnormal ultrasound of breast Procedures US Guided Breast Biopsy Right Marcela Hyatt MD Phone: tel: fax: [facility] Referral ID Status Reason Start Date Expiration Date Visits Re quested Visits Authorized [id number] Closed 07/09/2022 08/08/2023 1 1 Reason for Visit * Diagnostic Imaging (Routine) - Closed Specialty Diagnoses / Procedures Referred By Shimon hale Referred To Contact Diagnoses Abnormal ultrasound of breast Procedures US Guided Breast Biopsy Right Marcela Hyatt MD Phone: tel: fax: [facility] Referral ID Status Reason Start Date Expiration Date Visits Re quested Visits Authorized [id number] Closed 07/09/2022 08/08/2023 1 1 Encounter Details Date Type Department Care Team (Latest Contact Info) Description 10/13/2022 9:48 AM CDT - 10/13/2022 11:59 PM CDT Hospital Encounter [facility] Breast [facility]) [address] [place] [id number] Abnormal ultrasound of breast Discharge Disposition: Discharge to home or self [...] on file 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 Gender Identity Female 02/09/2024 11:18 AM CDT Sexual Orientation Straight 02/09/2024 11 :18 AM CDT documented as of this encounter Medications at Time of Discharge drospirenone-ethiny l estradioL (NALLELY DIMAS) 3-0.02 mg per tabletIndications:P regnancy Contraception Take 1 tablet by mouth daily 28 tablet 12 09/24/2022 4 documented as of this encounter Discharge Disposition Disposition Code Departure Means Destination Discharge to home or self care documented in this encounter Plan of Treatment Not on file documented as of this encounter Procedures Procedure Name Priority Date/Time Associated Diagnosis Comments US GUIDED BREAST BIOPSY RIGHT Schedule Routine, Read Routine (OP Routine) 10/13/2022 11:25 AM CDT Abnormal ultrasound of breast SURGICAL PATHOLOGY Routine 10/13/2022 11:12 AM CDT Abnormal ultrasound of breast documented in this encounter Results * US Guided Breast Biopsy Right (10/13/2022 11:25 AM CDT) Anatomical Region Laterality Modality Breast Right Ultrasound 10/13/2022 1:20 PM CDT Addenda Addendum by Leticia Long MD on 10/15/2022 11:08 AM CDT ADDENDUM: Pathology from biopsy of the right breast at 3:00 showed sclerosing adenosis, fibrocystic change; please refer to pathology report for details. Pathology from biopsy of the right breast at 4:00 showed fibroadenoma; please refer to pathology report for details. Pathology at both sites is benign and concordant. ??Recommend continued clinical follow-up. ??Patient can return for screening mammogram at age 39. Results and recommendations were discussed with the patient by Randa Samuel RN, BSN on 10/15/2022. Electronically signed by: Leticia Long M.D. Impressions 10/13/2022 1:20 PM CDT Successful core needle biopsy of the RIGHT breast (two sites). Pathology is pending. Electronically signed by: Leticia Long M.D. Narrative 10/13/2022 1:20 PM CDT EXAMINATION: RIGHT BREAST VACUUM-ASSISTED CORE BIOPSY (2 SITES) UTILIZING SONOGRAPHIC GUIDANCE, PLACEMENT OF A BIOPSY TISSUE MARKER CLIP (2 sites) HISTORY: ??Abnormal breast imaging. ??2 masses in the right breast Ultrasound guided core needle biopsy is requested to evaluate for malignancy. COMPARISON: 07/03/2022 PROCEDURE AND FINDINGS: The risks and potential benefits of the procedures were discussed with the patient and written informed consent was obtained. After sterile preparation of the skin, 1% lidocaine and 2% lidocaine with epinephrine were utilized for local anesthesia. ??A small skin incision was made with a #11 scalpel blade. Right breast 3:30, 4 cmfn: A 14G vacuum-assisted biopsy needle was then advanced through the skin incision to the edge of the lesion of interest at the 3:30 position from a lateral approach utilizing sonographic guidance. A total of 3 tissue cores were obtained through the lesion. ??An UltraClip ribbon-shaped tissue marker clip was then placed at the biopsy site. Hemostasis was achieved. ??Dermabond bandage and an ice pack were applied. There was no evidence of significant immediate complication. The patient was given verbal as well as written post procedural instructions prior to release from the department. ??The tissue cores were submitted to surgical pathology in formalin for histologic analysis. Right breast 4:00, 4 cmfn A 14G spring-loaded ??biopsy needle was then advanced through the skin incision to the edge of the lesion of interest at the 4:00 position from a lateral approach utilizing sonographic guidance. A total of 3 tissue cores were obtained through the lesion. ??An UltraClip wing-shaped tissue marker clip was then placed at the biopsy site. Hemostasis was achieved. ??Dermabond bandage and an ice pack were applied. There was no evidence of significant immediate complication. The patient was given verbal as well as written post procedural instructions prior to release from the department. ??The tissue cores were submitted to surgical pathology in formalin for histologic analysis. The attending radiologist, Dr. Leticia Long M.D., was present throughout the entire procedure. ?? Procedure Note Leticia Long MD - 10/13/2022 EXAMINATION: RIGHT BREAST VACUUM-ASSISTED CORE BIOPSY (2 [...] of the lesion of interest at the 4:00 position from a lateral approach utilizing sonographic guidance. A total of 3 tissue cores were obtained through the lesion. An UltraClip wing-shaped [...] M.D., was present throughout the entire procedure. IMPRESSION: Successful core needle biopsy of the RIGHT breast (two sites). Pathology is pending. Electronically signed by: Leticia Long M.D. Marcela Hyatt MD IMG MAMMO PROCEDU RES Edited Result - Final * Surgical pathology (10/13/2022 11:12 AM CDT) Tissue (Breast biopsy, needle core) 10/13/2022 11:12 AM CDT Comment:RIGHT breast - sono biopsy - 3:00 4cmfn 4a mass Tissue (Breast biopsy, needle core) 10/13/2022 11:14 AM CDT Comment:RIGHT breast - sono biopsy - 4:00 4cmfn 4a mass Narrative PATHOLOGY [facility] - 10/14/2022 9:44 AM CDT EPIC results best viewed via link to PDF [facility] [place] [address] Note to Patients: This report may contain [...] PATHOLOGY REPORT FINAL Patient Name: ?? MARGARETH CARDONA Gender: ??F : ??2005 (Age: 16) Address: ??[address] [place] [address] ??[id number] Hospital #: ??[id number] Taken:10/13/2022 Received:10/13/2022 Reported: 10/14/2022 Patient Type: [facility] Ancillary ?? Service: Laboratory Location: Physician(s): ??Leticia Long M.D. Marcela Hyatt M.D. Diagnosis: A. Breast, right, 3:00 - 4 cm from nipple, ultrasound-guided biopsy ? - Sclerosing adenosis ? - Fibrocystic change ? - No evidence of atypia or malignancy ?? B. Breast, right, 4:00 - 4 cm from nipple, ultrasound-guided biopsy ? - Fibroadenoma ? - No evidence of atypia or malignancy felipe/10/14/2022 08:55 By this signature, I attest that the above diagnosis is based upon my personal examination of the slides(and/or other material indicated in the diagnosis). Cinthia Travis M.D. Report Electronically Reviewed and Signed Out By ??Cinthia Travis M.D. 10/14/2022 09:44:22 Microscopic Description and Comment: Microscopic examination substantiates the above cited diagnosis. Artemio Ordaz M.D. History: The patient is a 16-year-old female presenting for 2 masses in the right breast. ??Operative procedure: ??Right breast biopsies BI-RADS 4A. Specimen(s) Received: A: Right breast - sono biopsy - 3:00 4cmfn 4a mass B: Right breast - sono biopsy - 4:00 4cmfn 4a mass Gross Description: Received in two formalin jars labeled with the patient's identifiers. A. ??Labeled right breast sono biopsy 3:00 4 cm FN 4A mass are four white cores of fibrofatty tissue measuring 0.6 1.7 cm in length by 0.1 cm in diameter. ?? Labeled A1 to A2. Jar 0. ??Total fixation time= 7.0 hours. B. ??Labeled right breast sono biopsy 4:00 4 cm FN 4A mass are three white cores of fibrofatty tissue measuring 1.9-2.4 cm in length by 0.1 cm in diameter. ?? Labeled B1 to B2. Jar 0. ??Total fixation time= 7.0 hours. [facility]/10/13/2022 14:33 PA(s): Rosibel Byers By this signature, I attest that the above diagnosis is based upon my personal examination of the slides(and/or other material). Addenda/Procedures The performance characteristics of some immunohistochemical stains, fluorescence in-situ hybridization tests and immunophenotyping by flow cytometry cited in this report (if any) were determined by the Surgical Pathology and Flow Cytometry Departments at [facility] as part of an ongoing quality systems manager program and in compliance with federally mandated [...] Surgical Pathology and Flow Cytometry Departments of [facility]. ??It has not been cleared or approved by the U. S. Food and Drug Administration. IMAGES AND SCANNED DOCUMENTS, IF INCLUDED, ONLY VIEWABLE IN PDF VERSION OF REPORT Marcela Hytat MD LAB PATHOLOGY ORD ERABLES Final Result PATHOLOGY [facility] 3rd Floor [place], [place] [phone] documented in this encounter Visit Diagnoses Diagnosis Abnormal ultrasound of breast documented in this encounter Administered Medications Inactive Administered Medications - up to 3 most recent administrations Medication Order MAR Action Action Date Dose Rate Site lidocaine (XYLOCAINE) 10 mg/mL (1 %) injection As needed, Starting on Wed10/13/22 at 1103, Intra-Procedure (IR), Indications: Administration of Local AnesthesiaIndications:Adminis tration of Local Anesthesia Given 10/13/2022 11:03 AM CDT 5 mL Right Breast lidocaine-EPINEPHrine (XYLOCAINE with EPI) 2 %-1:100,000 injection As needed, Starting on Wed10/13/22 at 1104, Intra-Op, Indications: Administration of Local AnesthesiaIndications:Adminis tration of Local Anesthesia Given 10/13/2022 11:04 AM CDT 20 mL Right Breast documented in this encounter Care Teams Ground Intelligence Officer Relationship Specialty Start Date End Date Marcela Hyatt MD PCP - General 09/09/20 documented as of this encounter
--- OUTSIDE RECORDS SUMMARY | 2024-05-20 19:27 | XMS_ITS | Encounter Summary ---
Author Organization [facility] Healthcare Address [address] [place] [address] Care Team Providers Care Professor Of Theater Name Role Phone Marcela Hyatt MD Primary Care Pro vider Reason for Referral * Diagnostic Imaging (Routine) - Closed Specialty Diagnoses / Procedures Referred By Shimon hale Referred To Contact Diagnoses Benign neoplasm of right breast Procedures US Breast Right Limited Yaima Carter NP Phone: tel: fax: [address] [phone] Referral ID Status Reason Start Date Expiration Date Visits Re quested Visits Authorized [id number] Closed 03/19/2021 04/18/2022 1 1 Reason for Visit * Diagnostic Imaging (Routine) - Closed Specialty Diagnoses / Procedures Referred By Shimon hale Referred To Contact Diagnoses Benign neoplasm of right breast Procedures US Breast Right Limited Yaima Carter NP Phone: tel: fax: [address] [phone] Referral ID Status Reason Start Date Expiration Date Visits Re quested Visits Authorized [id number] Closed 03/19/2021 04/18/2022 1 1 Encounter Details Date Type Department Care Team (Latest Contact Info) Description 03/20/2021 2:27 PM CDT - 03/20/2021 11:59 PM CDT Hospital Encounter [facility] [address] [place] [address] Yaima Carter NP [address] [facility] [address] [facility]LEY B [facility] [address] [id number] 1, Tonny Hunt Md Benign neoplasm of right breast Discharge Disposition: Discharge to home or self care Social History Tobacco Use Types Packs/Day Years Used Date Smoking Tobacco: Never Assessed Comments No Sex and Gender Information Value Date Recorded Sex Assigned at Not on file 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 Electronically signed by: Linn Guzman M.D. Narrative 03/20/2021 2:57 PM CDT EXAM: ??US BREAST RIGHT LIMITED DATE: 03/20/2021 2:30 PM CLINICAL HISTORY: 6 month Follow-up probably benign tumor right breast TECHNIQUE: Multiple ultrasonographic images of the right breast obtained ?? Comparison 09/20/2020 FINDINGS: Ultrasonographic evaluation of the right breast is performed at 4:00 4 cm from the nipple. In the palpable area of abnormality there is 2.3 cm x 1 cm x 2.1 cm capsulated hypoechoic mass with ??blood flow which has slightly increased in size since previous examination,. ??Previously measured 1.9 cm x 0.9 cm x 1.8 cm suggest follow-up Limited ultrasound of the right breast after 6 month. us Yamia Carter ENGINEER AND GEOLOGIST IMG MAMMO PROCEDURES Final Res ult documented in this encounter Visit Diagnoses Diagnosis Benign neoplasm of right breast documented in this encounter Care Teams Professor Of Theater Relationship Specialty Start Date End Date Marcela yHatt MD PCP - General 09/09/20 documented as of this encounter
--- OUTSIDE RECORDS SUMMARY | 2024-05-20 19:27 | XMS_ITS | Encounter Summary ---
Author Organization [facility] Address [address] [place] [address] Phone Care Team Providers Care Seamless Tube Mill Operator Name Role Phone Marcela Hyatt MD Primary Care Pro vider Reason for Visit * Reason Comments Consult * Consultation (Routine) - Canceled Specialty Diagnoses / Procedures Referred By Contac t Referred To Contact Surgical Oncology Diagnoses Mass of right breast, unspecified quadrant Marcela Hyatt MD Phone: tel: fax: Deidre Caceres MD PhD [address] [place] [address] Phone: tel: fax: Referral ID Status Reason Start Date Expiration Date Visits Requested Visits Authorized [id number] Canceled Specialty Services Required 07/13/2022 08/12/2023 1 1 Encounter Details Date Type Department Care Team (Late st Contact Info) Description 11/05/2022 2:05 PM CDT Office Visit [facility] Surgery [address] 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 Gender Identity Female 02/09/2024 11:18 AM CDT Sexual Orientation Straight 02/09/2024 11 :18 AM CDT documented as of this encounter Last Filed Vital Signs Vital Sign Reading Time Taken Comments Blood Pressure - - Pulse - - Temperature - - Respiratory Rate - - Oxygen Saturation - - Inhaled Oxygen Concentration - - Weight 64.9 kg (143 lb) 11/05/2022 2:18 PM CDT Height 167.6 cm (5' 6 ) 11/05/2022 2:18 PM CDT Body Mass Index 23.08 11/05/2022 2:18 PM CDT Body Mass Index Percentile 69.39% 11/05/2022 2:1 8 PM CDT Growth Chart: [facility] (Girls, 2- 20 Years) documented in this encounter Progress Notes * Deidre Caceres MD PhD - 11/05/2022 2:05 PM CDT Chief complaint: Right breast mass Marcela Hyatt* requested that I see SUNG [...] cm from nipple, ultrasound-guided biopsy fibroadenoma HPI 11/05/2022: Patient is a 17 y.o. woman complaining of a mass in the right breast which she first felt in 2020. It has increased in size since she first felt it. . Patient denies any other masses, skin changes, nipple discharge or skin changes. SERVICER HISTORY: Patient underwent menarche at age 11. She is . She has used oral contraceptives inthe past and is currently using them . She has not used hormone replacement therapy in the past andis not currently using any. She is premenopausal . She reports a history biopsies to the right breast which revealed fibroadenoma. Past Medical History: History reviewed. No pertinent past medical history. Past Surgical History: Procedure Laterality Date BREAST BIOPSY Right 10/13/2022 Medications: HOME MEDICATIONS : drospirenone-ethinyl estradioL (NALLELY DIMAS) 3-0.02 mg per tablet Allergies: No Known Allergies Social History Tobacco Use Smoking status: Never [...] pathology Taken:10/13/2022 Received:10/13/2022 Reported: 10/14/2022 Patient Type: [facility] Ancillary Service: Laboratory Location: Physician(s): Dorothy Glasgow M.D. Diagnosis: A. Breast, right, 3:00 - 4 cm from nipple, ultrasound-guided biopsy - Sclerosing adenosis - Fibrocystic change - No evidence of atypia or malignancy B. 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 I offered to remove the 10:00 mass of the right breast at the same time however the patient is unsure if she would like to have this. I did explain that there would need to be a second incision for the 10:00 mass. The patient will work to schedule this right breast excision soon. I described this as an outpatient procedure with the risk of bleeding and infection and upgrade to malignancy with need for additional surgery. She expressed understanding. I will obtain consent the day of surgery. We will schedule this at her earliest convenience. I answered all her questions today. She knows to call with questions. Thank you for the kind referral and opportunity to be involved in the care of Sulma Cardona. Please call with questions. This note is dictated and transcribed by [employer]. Vessel Ordinary Seaman variances may occur. Despite proofreading, typographical errors may occur. Cc: Marcela Hyatt* I have seen and examined the patient with the Breast Surgery Fellow Dr Madalyn Toledo. documented in this encounter Plan of Treatment Not on file documented as of this encounter Visit Diagnoses Diagnosis Mass of lower outer quadrant of right breast- Primary documented in this encounter Care Teams Seamless Tube Mill Operator Relationship Specialty Start Date End Date Marcela Hyatt MD PCP - General 09/09/20 documented as of this encounter
--- OUTSIDE RECORDS SUMMARY | 2024-05-20 19:27 | XMS_ITS | Encounter Summary ---
Author Organization [facility] Healthcare Address [address] [place] [address] Care Team Providers Care Impress Associate Name Role Phone Marcela Hyatt MD Primary Care Pro vider Reason for Visit * Reason Comments Breast Mass Encounter Details Date Type Department Care Team (Latest Contact Info) Description 09/04/2022 10:15 AM CDT Office Visit [facility] [address] [place] [address] 3rd Floor [address] [place] [address] Lay Sandoval MD [address] [place] [address] [address] [facility] [address] [place], [place] [id number] Healthcare maintenance (Primary Dx); Mass of right breast, unspecified quadrant; Encounter for general counseling and advice on contraceptive management Social History Tobacco Use Types Packs/Day Years [...] on file 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 Gender Identity Female 02/09/2024 11:18 AM CDT Sexual Orientation Straight 02/09/2024 11 :18 AM CDT documented as of this encounter Last Filed Vital Signs Vital Sign Reading Time Taken Comments Blood Pressure 123/73 09/04/2022 11:03 AM CDT Pulse 64 09/04/2022 11:03 AM CDT Temperature 36.2 ??C (97.1 ??F) 09/04/2022 1 1:03 AM CDT Respiratory Rate - - Oxygen Saturation 98% 09/04/2022 11: 03 AM CDT Inhaled Oxygen Concentration - - Weight 65.2 kg (143 lb 12.8 oz) 023 11:03 AM CDT Height - - Body Mass Index - - documented in this encounter Patient Instructions * Patient Instructions* Lay Sandoval MD - 09/04/2022 10:15 AM CDT Images from the original note were not included. Contact [facility] - 3rd Floor CIPHER EXPERT [address] [place] [address] Office hours: Wednesday-Wednesday 8:30 AM-4:30 PM Phone number: [phone] Daytime: Call us if you have questions or if you are getting worse after your appointment. If you need to cancel or change your appointment, call during normal clinic hours. We appreciate at least 24 hours notice for cancellations. Call during daytime hours to change your appointment, for paperwork or othernon- urgent needs. Do not call the clinic to request refills, call your pharmacy and they will contact the clinic. After hours emergencies: If the clinic is not open and you are having a medical problem, you can call us at [phone]. Please wait until the clinic is open for non-urgent needs as this emergency line cannot help with appointments, paperwork or prescriptions. If you have an emergency and cannot wait, please call 911 or go to the [facility] Emergency room. If you are having a problem with or are in labor you can [facility] (check in near elevator on first floor) [address] [facility], [address]th [place] [address]. documented in this encounter Progress Notes * Lay Sandoval MD - 09/04/2022 10:15 AM CDT SUPERVISOR PAPER MACHINE NEW VISIT Subjective: Sulma Cardona is a 16 y.o. G0 who presents for evaluation of breast mass. Patient reports she first noticed bump on R breast several years ago and she has been followed withUS. Most recently patient had bilateral breast US on 07/03/22 that showed 2.9 cm mass in R breast (4o'clock) increased in size and 1.0 cm mass in R breast (3 o'clock). BI-RADS 4A and US guided biopsywas recommended. Patient presents with mother. They cancelled biopsy and wanted to discuss with provider if biopsy was necessary. Patient is sexually active with one partner. They use condoms. Her partner has had one previous partner prior to her. She has never been tested for STIs. Never been on control. She received HPVvaccine series. Medical history: - None Surgical history: - Denies hx of abd surgeries SUPERVISOR PAPER MACHINE History Menses: regular, every 30 days, lasting 5 days, not painful. Pap History: not indicated STD History: none Contraception: Condoms HRT: pre-menopausal OB History No obstetric history on file. No past medical history on file. No past surgical history on file. No current outpatient medications on file. No Known Allergies No family history on file. Social History Tobacco Use Smoking status: Never Passive exposure: Never Smokeless tobacco: Never Substance and Sexual Activity Drug use: None Sexual activity: None Alcohol Use: Not on file Objective: BP 123/73 Pulse 64 Temp 36.2 ??C (97.1 ??F) Wt 143 lb 12.8 oz LMP 08/24/2022 SpO2 98% Physical Exam General: NAD, mood appropriate Pulmonary: Non-labored Cardiovascular: Regular rate Abdomen: soft, non-tender, non-distended, without rebound or guarding Extremities: Warm and well perfused GENITAL EXAM: Deferred Assessment/Plan: Sulma Cardona is a 16 y.o. G0 with breast mass. Problem List Genitourinary and Reproductive Encounter for general counseling and advice on contraceptive management Overview - no contraindication to estrogen - discussed contraceptive options - information printed out for patient - patient will notify provider if she would like to start control Mass of right breast Overview - Reports long standing hx of R [...] biopsy - Patient agreeable, all questions answered Health Encounters Healthcare maintenance - Primary Overview - STI testing today Relevant Orders N. gonorrhoeae/C. trachomatis Amplification Urine Trichomonas vaginalis PCR Urine RTC WWE. Patient discussed with Dr. Coy Sandoval MD Cosigned by Rafia Cespedes MD at 09/07/2022 10:50 AM CDT Associated attestation - Rafia Cespedes MD - 09/07/2022 10:50 AM CDT I have personally reviewed with Dr. Sandoval the history, physical examination, laboratory studies and proposed management for Sulma Cardona. Together we formulated a clinical diagnosis for each problem and developed a plan for therapy during or immediately after her clinic visit. I agree with the recommended plan of care. documented in this encounter Plan of Treatment Not on file documented as of this encounter Procedures Procedure Name Priority Date/Time Associated Diagnosis Comments N. GONORRHOEAE/C. TRACHOMATIS AMPLIFICATION Routine 09/04/2022 1:53 PM CDT Healthcare maintenance TRICHOMONAS VAGINALIS PCR Routine 09/04/2022 1:53 PM CDT Healthcare maintenance documented in this encounter Results * Trichomonas vaginalis PCR Urine (09/04/2022 1:53 PM CDT) Trichomonas DNA Not Detected Not Detected [facility] Comment: Interpretive Data Testing performed by [facility] using Nucleic Acid Amplification with the SIGKAT Xpert TV Assay. ??This assay detects DNA from Trichomonas vaginalis using Real-Time PCR. ??This test is cleared by the [facility] Food and Drug Administration for endocervical swabs, vaginal swabs, female urine (first-catch), and male urine (first-catch). ??The performance characteristics for these specimen types have been verified by the [facility]. ??Excess blood in specimens may be inhibitory and result in false negative results. ??The performance of this test has not been evaluated in women or individuals less than 18 years of age. Current Interpretive Data was last revised on 2019. Urine 09/04/2022 1:53 PM CDT 09/04/2022 4:35 PM CDT Lay Sandoval MD LAB MICROBIOLOGY - GEN ERAL ORDERABLES Final Result Performing Organization Address City/[facility] Co de Phone Number [facility] [place] [address] * N. gonorrhoeae/C. trachomatis Amplification Urine (09/04/2022 1:53 PM CDT) C. trachomatis Not Detected Not Detected [facility] N. gonorrhoeae Not Detected Not Detected [facility] Comment: Interpretive Data Testing performed by the [facility]. This assay detects Chlamydia trachomatis and Neisseria gonorrhoeae by nucleic acid amplification testing (NAAT). This test is approved by the [facility] Food and Drug Administration and the performance characteristics have been verified by the laboratory. The performance characteristics of this test have not been evaluated in individuals less than 14 years of age. Current Interpretive Data was last revised on 2018. Urine (None) 09/04/2022 1:53 PM CDT 09/04/2022 4:35 PM CDT us Lay Sandoval MD LAB MICROBIOLOGY - GEN ERAL ORDERABLES Final Result Performing Organization Address City/[facility]/ZIP Co de Phone Number [facility] [place] [address] documented in this encounter Visit Diagnoses Diagnosis Healthcare maintenance- Primary Mass of right breast, unspecified quadrant Encounter for general counseling and advice on contraceptive management documented in this encounter Care Teams Impress Associate Relationship Specialty Start Date End Date Marcela Hyatt MD PCP - General 09/09/20 documented as of this encounter
--- OUTSIDE RECORDS SUMMARY | 2024-05-20 19:27 | XMS_ITS | Encounter Summary ---
Author Organization [facility] Address [address] [facility] [address] [place] [address] Phone Care Team Providers Care Door Operator Name Role Phone Marcela Hyatt MD Primary Care Pro vider Reason for Visit * Reason Comments Follow-up Encounter Details Date Type Department Care Team (Late st Contact Info) Description 07/29/2023 9:50 AM CDT Office Visit [facility] Surgery [address] [facility] 5th Floor [address] [place] [address] Deidre Caceres MD PhD [address] [facility] [place] [place] [phone] [place] [address] Abnormal finding on breast imaging (Primary Dx); Mass of upper inner quadrant of right breast; Hx of benign breast biopsy; Fibroadenoma of [...] on file 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 (Girls, 2- 20 Years) documented in this encounter Progress Notes * Deidre Caceres MD PhD - 07/29/2023 9:50 AM CDT Chief Complaint: new right breast lump Marcela Hyatt* requested that I see SUNG Ding 2004, in consultation for right breast fibr. Treatment to Date: 07/03/2022: Right breast US: 2.9 cm mass at [...] represent a complicated cyst or cyst cluster. 10/13/2022: US Guided Biopsy: Breast, right, 4:00 - 4 cm from nipple, ultrasound- guided biopsy fibroadenoma 12/11/2022: Right breast excisional biopsy and crescent mastopexy showing fibroadenoma HPI 11/05/2022: Patient is a 17 y.o. woman complaining of a mass in the right breast which she first felt in 2020. It has increased in size since she first felt it. Patient denies any other masses, skin changes, nipple discharge or skin changes. Interval History 12/24/2022 : This is a 17 y.o. person who presents in postop follow up right breastexcisional biopsy. Since surgery, she has been doing well. She denies fevers, redness of incision ,pain. She has had some serous drainage from the superior aspect of her incision. Interval History 07/29/2023 : Since last clinic visit, patient has noticed a new right breast lump. She first noticed this in May of 2023. She does not think it has changed significantly in size. This mass is tender to palpation but is not painful when it is not pressed. She has no concerning areas on her left breast. She has no bilateral nipple discharge or skin puckering or redness of eitherbreast. She continues taking oral contraceptive pills that she has been taking since approximately September of 2022. She presents today for evaluation. She is escorted by her mother. Sulma Cardona's WELT DRAWER history, past medical history, past surgical history, allergies, medications, social history, and family history were reviewed and are unchanged from her note dated 11/05/2022except as noted above. Review of systems: Pertinent items are noted in HPI. Exam Vital signs: She is Vitals Ht 167.6 cm (5' 5.98 ) Wt 65.8 kg (145 lb 1 oz) BMI 23.43 kg/m?? , Body mass index is 23.43 kg/m??. General: Well-developed and well-nourished. Neuro: Patient is [...] normal in contour. Bra size 34A. Right breast is larger than the left breast. Right Breast: There is no obvious skin changes, dimpling, nor retraction. Well healed superior medial periareolar incision. There is a 1cm well-circumscribed, firm, mobile lesion at the 1 o'clock position 5cm from the right nipple that is mildly tender to palpation. The nipple and areola are without erosion, [...] contents shows no concerning mass or adenopathy. Her left breast appears slightly smaller than the right breast. Imaging:I personally ordered and reviewed all the imaging today. 07/29/2023 left breast ultrasound: EXAMINATION: RIGHT BREAST ULTRASOUND HISTORY: 17-year-old woman here with new painful right breast lump since 05/2023. History of prior fibroadenomas status post surgical resection of 3 on 12/11/2022. COMPARISON: Multiple prior right breast ultrasounds dating back to 09/20/2020, most recently 10/13/2022 TECHNIQUE: Directed ultrasound evaluation of the RIGHT breast was performed. ULTRASOUND FINDINGS: Targeted ultrasound of the right breast was performed. In area of palpable concern in the right breast, 1 o'clock position, 5 cm from the nipple, there is 2.4 x 1.4 x 2.3 cm oval circumscribed parallel hypoechoic mass with minimal internal vascularity. This mass has a similar appearance to the patient's prior pathology-proven fibroadenomas. IMPRESSION: A 2.4 cm oval circumscribed mass in the right breast, 1 o'clock position, 5 cm from nipple is most suggestive of a fibroadenoma. This finding is probably benign. OVERALL FINAL ASSESSMENT: BI-RADS Category 3: Probably Benign. RECOMMENDATION: 1. Recommend follow-up diagnostic breast imaging in 6 months with right breast ultrasound of right breast mass. 2. Clinical follow-up. Assessment: Right breast fibroadenoma s/p excisional biopsy x 3 New right breast mass consistent with likely fibroadenoma Abnormal finding on breast imaging- BIRADS 3 Plan: Sulma was seen today for a new right breast mass for which she had an ultrasound of the right breast today. Imaging is probably benign. She return to clinic in 6 months with repeat imaging andclinical exam. I answered all her questions today and she is in agreement with this plan. She knowsto call with questions. Thank you for the kind referral and opportunity to be involved in the care of Sulma Cardona. Please call with questions. This note is dictated and transcribed by [employer]. Keyboard Instrument Tuner variances may occur. Despite proofreading, typographical errors may occur. cc: Marcela Hyatt* I have seen and examined this patient with the resident Dr. Julián Mcmahon. I have made necessary changes/edits to this note. I agree with this note with the necessary edits/ changes which I have made. documented in this encounter Plan of Treatment Not on file documented as of this encounter Visit Diagnoses Diagnosis Abnormal finding on breast imaging- Primary Mass of upper inner quadrant of right breast Hx of benign breast biopsy Fibroadenoma of right breast documented in this encounter Care Teams Door Operator Relationship Specialty Start Date End Date Marcela Hyatt MD PCP - General 09/09/20 documented as of this encounter
--- OUTSIDE RECORDS SUMMARY | 2024-05-20 19:27 | XMS_ITS | Encounter Summary ---
Author Organization [facility] Healthcare Address [address] [place] [address] Care Team Providers Care Wholesaler Name Role Phone Marcela Hyatt MD Primary Care Pro vider Reason for Visit * Reason Comments Appointment Breast biopsy appt Encounter Details Date Type Department Care Team (Late st Contact Info) Description 07/09/2022 Telephone [facility] Breast [facility] ([facility]) [address] [place] [address] Randa Samuel RN Appointment (Breast biopsy appt) Social History Tobacco Use Types Packs/Day Years Used Date Smoking Tobacco: Never Assessed Comments No Sex and Gender Information Value Date Recorded Sex Assigned at Not on file 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 Pt is scheduled for biopsy on August 13 at 830am. Educated to call with any questions or to reschedule. Questions answered and pt verbalized understanding. THESIOLOGIST ASSISTANT documented in this encounter Plan of Treatment Not on file documented as of this encounter Visit Diagnoses Not on filedocumented in this encounter Care Teams Wholesaler Relationship Specialty Start Date End Date Marcela Hyatt MD PCP - General 09/09/20 documented as of this encounter
--- OUTSIDE RECORDS SUMMARY | 2024-05-20 19:27 | XMS_ITS | Encounter Summary ---
Author Organization [facility] Address [address] [place] [address] Phone Care Team Providers Care Franchise Development Manager Name Role Phone Marcela Hyatt MD Primary Care Pro vider Encounter Details Date Type Department Care Team (Late st Contact Info) Description 12/16/2022 Telephone [facility] Surgery [address] [facility] 5th [address] [place] [address] Conrad Norton Social History Tobacco [...] on file Legal Sex Female 6:26 PM SPEECH CORRECTION CONSULTANT Gender Identity Female 02/09/2024 11:18 AM CDT Sexual Orientation Straight 02/09/2024 11 :18 AM CDT documented as of this encounter Miscellaneous Notes * Telephone Encounter - Conrad Norton - 12/16/2022 10:22 AM CDT PC to pt mom as she called in a concern. Her daughter saw a spot of dried blood on her bra yesterday and after her shower when she dabbed it she noticed another spot of blood. No sxs of infection., no swelling or discoloration. The derma delgado is still intact. Mom doesn't feel it is concerning and RN agreed. She will call if the pt develops any sxs of infection. documented in this encounter Plan of Treatment Not on file documented as of this encounter Visit Diagnoses Not on filedocumented in this encounter Care Teams Franchise Development Manager Relationship Specialty Start Date End Date Macrela Hyatt MD PCP - General 09/09/20 documented as of this encounter
--- OUTSIDE RECORDS SUMMARY | 2024-05-20 19:27 | XMS_ITS | Encounter Summary ---
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 Reviewed options at last visit. No contraindications to OCP. Rx sent to pharmacy. Lay Sandoval MD Obstetrics & Gynecology, PGY-3 documented in this encounter Plan of Treatment Not on file documented as of this encounter Visit Diagnoses Not on filedocumented in this encounter Care Teams Cad Draftsman Relationship Specialty Start Date End Date Marcela Hyatt MD PCP - General 09/09/20 documented as of this encounter
--- OUTSIDE RECORDS SUMMARY | 2024-05-20 19:27 | XMS_ITS | Encounter Summary ---
Author Organization [facility] Healthcare Address [address] [place] [address] Care Team Providers Care Budder Name Role Phone Marcela Hyatt MD Primary Care Pro vider Reason for Referral * Diagnostic Imaging (Routine) - Closed Specialty Diagnoses / Procedures Referred By Shimon hale Referred To Contact Diagnoses Fibroadenoma of right breast Procedures US Breast Right Limited Deidre Caceres MD PhD [address] [facility] [phone] [place] [address] Phone: tel: fax: [address] [phone] Referral ID Status Reason Start Date Expiration Date Visits Re quested Visits Authorized [id number] Closed 07/16/2023 08/14/2024 1 1 Reason for Visit * Diagnostic Imaging (Routine) - Closed Specialty Diagnoses / Procedures Referred By Shimon hale Referred To Contact Diagnoses Fibroadenoma of right breast Procedures US Breast Right Limited Deidre Caceres MD PhD [address] [facility] [phone] [place] [address] Phone: tel: fax: [address] [phone] Referral ID Status Reason Start Date Expiration Date Visits Re quested Visits Authorized [id number] Closed 07/16/2023 08/14/2024 1 1 Encounter Details Date Type Department Care Team (Late st Contact Info) Description 07/29/2023 10:13 AM CDT - 07/29/2023 11:59 PM CDT Hospital Encounter 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 Gender Identity Female 02/09/2024 11:18 AM CDT Sexual Orientation Straight 02/09/2024 11 :18 AM CDT documented as of this encounter Medications at Time of Discharge docusate sodium (DOK) 100 mg tabletIndications:c onstipation [...] 12/11/2022 4 documented as of this encounter Discharge Disposition Disposition Code Departure Means Destination Discharge to home or self care documented in this encounter Plan of Treatment Not on file documented as of this encounter Procedures Procedure Name Priority Date/Time Associated Diagnosis Comments US BREAST RIGHT LIMITED Schedule Routine, Read Routine (OP Routine) 07/29/2023 11:02 AM CDT Fibroadenoma of right breast documented in this encounter Results * US Breast Right Limited (07/29/2023 11:02 AM CDT) Anatomical Region Laterality Modality Breast Right Ultrasound 07/29/2023 11:0 6 AM CDT Impressions 07/29/2023 1:52 PM CDT A 2.4 cm oval circumscribed mass in the right breast, 1 o'clock position, 5 cm from nipple is most suggestive of a fibroadenoma. This finding is probably benign. OVERALL FINAL ASSESSMENT: BI-RADS Category 3: Probably Benign. RECOMMENDATION: 1. Recommend follow-up diagnostic breast imaging in 6 months with right breast ultrasound of right breast mass. ?? 2. Clinical follow-up. Dictated by: Kianna Stareky MD The radiology attending physician has personally reviewed this study, and had reviewed and/or edited this written report and agrees with it. Electronically signed by: Caitlin Grant M.D. Narrative 07/29/2023 1:52 PM CDT EXAMINATION: RIGHT BREAST ULTRASOUND HISTORY: 17-year-old woman here with new painful right breast lump since 05/2023. ??History of prior fibroadenomas status post surgical resection [...] parallel hypoechoic mass with minimal internal vascularity. ??This mass has a similar appearance to the patient's prior pathology-proven fibroadenomas. Procedure Note Caitlin Grant MD - 07/29/2023 EXAMINATION: RIGHT BREAST ULTRASOUND HISTORY: 17-year-old woman [...] of right breast mass. 2. Clinical follow-up. Dictated by: Kianna Starkey MD The radiology attending physician has personally reviewed this study, and had reviewed and/or edited this written report and agrees with it. Electronically signed by: Caitlin Grant M.D. us Deidre Caceres MD PhD IMG MAMMO PROCEDURES Final Result documented in this encounter Visit Diagnoses Diagnosis Fibroadenoma of right breast documented in this encounter Care Teams Budder Relationship Specialty Start Date End Date Marcela Hyatt MD PCP - General 09/09/20 documented as of this encounter
--- OUTSIDE RECORDS SUMMARY | 2024-05-20 19:27 | XMS_ITS | Encounter Summary ---
Author Organization [facility] Address [address] [place] [address] Phone Care Team Providers Care Pan Washer Hand Name Role Phone Marcela Hyatt MD Primary Care Pro vider Reason for Visit * Reason Onset Date Comments Scheduling Appointments 07/16/2023 Encounter Details Date Type Department Care Team (Late st Contact Info) Description 07/16/2023 Telephone [facility] Surgery [address] [facility] 5th [place] [address] [place] [address] Raven Goncalves PROFESSIONAL BASS FISHERMAN Scheduling Appointments Social History Tobacco Use Types [...] on file Legal Sex Female 6:26 PM RESTROOMS OR LOUNGES MAID Gender Identity Female 02/09/2024 11:18 AM CDT Sexual Orientation Straight 02/09/2024 11 :18 AM CDT documented as of this encounter Miscellaneous Notes * Telephone Encounter - Lorena Mitchell RN - 07/16/2023 9:23 AM CST Patient's mother returned call and informed of appointments made for patient on 07/29/23 with Deidre Caceres MD followed by an US. Fariba agreed to date/time/location. ROOMS OR LOUNGES MAID * Telephone Encounter - Raven Goncalves CMA - 07/16/2023 9:03 AM CST Patient called office requesting imaging an office visit to be reassessed for fibroadenoma. Patientis scheduled for 07/29/2023 ROOMS OR LOUNGES MAID documented in this encounter Plan of Treatment Not on file documented as of this encounter Visit Diagnoses Not on filedocumented in this encounter Care Teams Pan Washer Hand Relationship Specialty Start Date End Date Marcela Hyatt MD PCP - General 09/09/20 documented as of this encounter
--- OUTSIDE RECORDS SUMMARY | 2024-05-20 19:27 | XMS_ITS | Encounter Summary ---
Author Organization [facility] Healthcare Address [address] [place] [address] Care Team Providers Care Heading Matcher And Assembler Name Role Phone Marcela Hyatt MD Primary Care Pro vider Reason for Visit * Reason Comments Foot Injury Encounter Details Date Type Department Care Team (Late st Contact Info) Description 09/09/2020 11:29 PM CDT - 09/10/2020 12:44 AM CDT Emergency [facility] Emergency Department [address] [place] [address] Alanis Maldonado MD [address] [place] [id number] Traumatic hematoma of right foot (Primary Dx) Discharge Disposition: Discharge to home or self care Social History Tobacco Use Types Packs/Day Years Used Date Smoking Tobacco: Never Assessed Comments No Sex and Gender Information Value Date Recorded Sex Assigned at Not on file 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 Gender Identity Female 02/09/2024 11:18 AM CDT Sexual Orientation Straight 02/09/2024 11 :18 AM CDT documented as of this encounter Last Filed Vital Signs Vital Sign Reading Time Taken Comments Blood Pressure 106/76 09/09/2020 11:25 PM CDT Pulse 87 09/09/2020 11:25 PM CDT Temperature 37.2 ??C (98.9 ??F) 09/09/2020 11:25 PM C DT Respiratory Rate 18 09/09/2020 11:25 PM CDT Oxygen Saturation 99% 09/09/2020 11:25 PM CDT Inhaled Oxygen Concentration - - Weight 54.4 kg (120 lb) 09/09/2020 11:25 PM CDT Height 167.6 cm (5' 6 ) 09/09/2020 11:25 PM CDT Body Mass Index 19.37 09/09/2020 11:25 PM CDT Body Mass Index Percentile 36.24% 09/09/2020 11: 25 PM CDT Growth Chart: [facility] (Girls, 2- 20 Years) documented in this encounter Discharge Diagnoses Diagnosis Contusion of right foot, initial encounter - CONTUSION OF RIGHT FOOT, INITIAL ENCOUNTER Struck by shoe cleats, initial encounter - STRUCK BY SHOE CLEATS, INITIAL ENCOUNTER Activity, soccer - ACTIVITY, SOCCER Soccer field as the place of occurrence of the external cause - SOCCER FIELD THE PLACE OF OCCURRENCE OF THE EXTERNAL CAUSE documented in this encounter Discharge Instructions * Discharge Instructions* Alanis Maldonado MD - 09/09/2020 11:51 PM CDT Okay to take over the counter acetaminophen and/or ibuprofen as needed for pain. Please follow instructions on the package. Please follow-up with your primary care doctor in 1 week. * Attachments The following attachments cannot be sent through Care Everywhere. * Foot Contusion (AfterCare(R) Instructions(ER/ED)) (Peruvian) documented in this encounter Discharge Disposition Disposition Code Departure Means Destination Discharge to home or self care documented in this encounter ED Notes * Alanis Maldonado MD - 09/09/2020 11:34 PM CDT Triage Chief Complaint: Chief Complaint Patient presents with ??? Foot Injury HPI: Sulma Cardona is a 14 y.o. female otherwise healthy who presents accompanied by mother for foot pain, right. Patient was playing soccer today and was stepped on by another player in [place]. She was able to finish the game. She has been bearing weight. After the game she took a nap. When she woke up she had a lot of swelling to the dorsum of the right foot so she came to the emergency department for evaluation. No numbness or weakness. Denies any other injuries. ROS: At least 5 systems reviewed and otherwise negative except as in the HPI or nursing notes. Immunizations up-to-date. History reviewed. No pertinent past medical history. No past surgical history on file. HOME MEDICATIONS : Not on File No Known Allergies Family history: Noncontributory. Social history: Age-appropriate grade in school sophomore. Accompanied by mother Nursing Triage Notes Reviewed Physical Exam: ED Triage Vitals [09/09/202324] Temp Pulse Resp BP SpO2 37.2 ??C (98.9 ??F) 87 18 106/76 99 % Temp src Heart Rate Source Patient Position BP Location FiO2 (%) Temporal -- -- -- -- GENERAL APPEARANCE: Awake and alert. No acute distress. HEAD: Normocephalic. Atraumatic. EYES: Sclera anicteric. ENT: Tolerates saliva. NECK: Supple. Trachea midline. LUNGS: Respirations unlabored. EXTREMITIES: 2+ dorsal pedal pulses are symmetrical. There is bruising overlying the right dorsal pedal pulse making a little bit harder to find. Appears to be hematoma. Able to squeeze the forefoot without significant pain. Patient can wiggle her toes. Capillary refill is brisk, less than 2 seconds, symmetrical bilaterally. Full painless range of motion of the bilateral ankles, knees, hips. No bony tenderness. SKIN: Warm and dry, no visible rashes, appears well perfused. NEUROLOGICAL: No gross facial drooping. Moves all 4 extremities spontaneously. PSYCHIATRIC: Normal mood. Labs Reviewed - No data to display XR Foot Right 3+ views Final Result Procedures ED COURSE: ED Course as of Sep 11 647 Time: 09/10 26 Comment: ?? IMPRESSION: ?? 1. Prominent soft tissue swelling over the dorsum foot at the level the tarsometatarsal joint. ?? 2. No discrete underlying fracture. Consider further evaluation with MRI CT if there is persistent pain and persistent concern for fracture or tendon injury. By: Alanis Maldonado MD Vitals: 09/09/202324 BP: 106/76 Pulse: 87 Resp: 18 Temp: 37.2 ??C (98.9 ??F) TempSrc: Temporal SpO2: 99% Weight: 54.4 kg (120 lb) Height: 167.6 cm (5' 6 ) MDM: Appears to be a large hematoma on the dorsum of the right foot. No evidence of a arterial injury. No bony tenderness and patient has been bearing weight making fracture unlikely. Physical exam not consistent with forefoot dislocation/fracture. Will give postop shoe and crutches for comfort. Rest ice compression elevation. No soccer until cleared by primary doctor or sports medicine or Podiatry. Patient has been advised to follow-up with primary in 1 week or if recommended to do so by primary, specialist is still having symptoms. Clinical Impression: 1. Traumatic hematoma of right foot Disposition: Discharge (Please note that portions of this note may have been completed with a voice recognition program. Occasionally words are mis-transcribed.) Alanis Maldonado MD 09/10/20 0648 * Neha Yoder RN - 09/09/2020 11:23 PM CDT Patient arrives to ER for complaint of right foot injury that occurred during soccer game. Patient states being steeped on by player. Patient states incident occurred around 1900. Patient able to bear weight at time of triage but states swelling has increased. documented in this encounter Plan of Treatment Not on file documented as of this encounter Procedures Procedure Name Priority Date/Time Associated Diagnosis Comments XR FOOT RIGHT 3 OR MORE VIEWS ED 09/09/2020 11:37 PM CDT documented in this encounter Results * XR Foot Right 3+ views (09/09/2020 11:37 PM CDT) Anatomical Region Laterality Modality Lower Extremities, Foot Right Computed Radiography 09/09/2020 11:4 3 PM CDT Narrative 09/09/2020 11:46 PM CDT EXAM DESCRIPTION: ?? XR FOOT RIGHT 3 OR MORE VIEWS REASON FOR STUDY: ?? Injured wall playing soccer this evening with subsequent pain increasing soft tissue swelling TECHNIQUE: ?? AP, Oblique, and Lateral Radiographs of the right foot were obtained. COMPARISON: ?? None available FINDINGS: Bones appear intact, without evidence of fracture. ??No radiopaque foreign bodies present. ??Prominent soft tissue swelling over the dorsum of the foot is noted at the level of the tarsometatarsal articulations. IMPRESSION: ?? 1. ??Prominent soft tissue swelling over the dorsum foot at the level the tarsometatarsal joint. 2. ??No discrete underlying fracture. ??Consider further evaluation with MRI CT if there is persistent pain and persistent concern for fracture or tendon injury. THIS IS AN ELECTRONICALLY VERIFIED FINAL REPORT 09/09/2020 11:46 PM - Electronically signed by Jorge Mooney M.D. AT: AT D: ??09/09/2020 11:46 PM T: ??09/09/2020 11:46 PM Report ID: [id number] Reading Location: ??[id number] Procedure Note Jorge Mooney MD - 09/09/2020 EXAM DESCRIPTION: XR FOOT RIGHT 3 OR MORE VIEWS REASON FOR STUDY: Injured wall playing soccer this evening withsubsequent pain increasing soft tissue swelling TECHNIQUE: AP, Oblique, and Lateral Radiographs of the right foot were obtained. COMPARISON: None available FINDINGS: Bones appear intact, without evidence of fracture. No radiopaque foreign bodies present. Prominent soft tissue swelling over the dorsum of thefoot is noted at the level of the tarsometatarsal articulations. IMPRESSION: 1. Prominent soft tissue swelling over the dorsum foot at the level the tarsometatarsal joint. 2. No discrete underlying fracture. Consider further evaluation with MRICT if there is persistent pain and persistent concern for fracture or tendon injury. THIS IS AN ELECTRONICALLY VERIFIED FINAL REPORT 09/09/2020 11:46 PM - Electronically signed by Jorge Mooney M.D. AT: AT Report ID: [id number] Reading Location: [id number] Alanis Maldonado MD IMG XR PROCEDURES Final Result documented in this encounter Visit Diagnoses Diagnosis Traumatic hematoma of right foot- Primary documented in this encounter Care Teams Heading Matcher And Assembler Relationship Specialty Start Date End Date Marcela Hyatt MD PCP - General 09/09/20 documented as of this encounter
--- OUTSIDE RECORDS SUMMARY | 2024-05-20 19:27 | XMS_ITS | Encounter Summary ---
Author Organization [facility] Address [address] [facility] [address] [place] [address] Phone Care Team Providers Care Assembly Inspector Name Role Phone Marcela Hyatt MD Primary Care Pro vider Reason for Visit * Reason Onset Date Comments order for breast ultrasound 07/15/2023 Encounter Details Date Type Department Care Team (Late st Contact Info) Description 07/15/2023 Telephone [facility] Surgery [address] [facility] Advanced Medicine 5th [address] [place] [address] Deidre Caceres MD PhD [address] [facility] [phone] [place] [address] order for breast ultrasound Social History Tobacco Use Types Packs/Day Years [...] on file 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 Her PCP would normally just send the order in but because she previously had surgery for the same thing in the past; they recommended her to call our office. She had surgery with Dr Caceres November 2022 for removal of fibrous breast tissue. Patient's mother requested an order be sent to or [facility]; the patient is at [employer] and will be back for spring break the week of 07/26/23 - she would like her daughter to be scheduled any day that week. Please call her mother back once scheduled. L SPECIALIST documented in this encounter Plan of Treatment Not on file documented as of this encounter Visit Diagnoses Not on filedocumented in this encounter Care Teams Assembly Inspector Relationship Specialty Start Date End Date Marcela Hyatt MD PCP - General 09/09/20 documented as of this encounter
--- OUTSIDE RECORDS SUMMARY | 2024-05-20 19:27 | XMS_ITS | Encounter Summary ---
Author Organization [facility] Healthcare Address [address] [place] [address] Care Team Providers Care Catering Director Name Role Phone Maksim Sosa MD Primary Care Pro vider Reason for Referral * Diagnostic Imaging (Routine) - Closed Specialty Diagnoses / Procedures Referred By Shimon hale Referred To Contact Diagnoses Benign neoplasm of right breast Procedures US Breast Right Limited Maksim Sosa MD Phone: tel: fax: [address] [phone] Referral ID Status Reason Start Date Expiration Date Visits Re quested Visits Authorized [id number] Closed 06/11/2022 07/11/2023 1 1 WAREHOUSING MANAGER Reason for Visit * Diagnostic Imaging (Routine) - Closed Specialty Diagnoses / Procedures Referred By Shimon hale Referred To Contact Diagnoses Benign neoplasm of right breast Procedures US Breast Right Limited Maksim Sosa MD Phone: tel: fax: [address] [phone] Referral ID Status Reason Start Date Expiration Date Visits Re quested Visits Authorized [id number] Closed 06/11/2022 07/11/2023 1 1 Encounter Details Date Type Department Care Team (Latest Contact Info) Description 07/03/2022 8:08 AM DATA WAREHOUSING MANAGER - 07/03/2022 11:59 PM DATA WAREHOUSING MANAGER Hospital Encounter [facility] [address] [place] [id number] Benign neoplasm of right breast Discharge Disposition: Discharge to home or self care Social History Tobacco Use Types Packs/Day Years Used Date Smoking Tobacco: Never Assessed Comments No Sex and Gender Information Value Date Recorded Sex Assigned at Not on file Legal Sex Female 6:26 PM DATA WAREHOUSING MANAGER Gender Identity Female 02/09/2024 11:18 AM [...] LIMITED Schedule Routine, Read Routine (OP Routine) 07/03/2022 9:31 AM DATA WAREHOUSING MANAGER Benign neoplasm of right breast documented in this encounter Results * (ABNORMAL) US Breast Right Limited (07/03/2022 9:31 AM DATA WAREHOUSING MANAGER) Anatomical Region Laterality Modality Breast Right Ultrasound 07/03/2022 9:51 AM DATA WAREHOUSING MANAGER Impressions 07/03/2022 9:51 AM DATA WAREHOUSING MANAGER 1. ??The 2.9 cm mass at the palpable area of concern in the right breast at the 4 o'clock position, 4 cm from the nipple has increased in size. ??This is of low suspicion for malignancy and most likely represents an fibroadenoma. ??Ultrasound-guided biopsy of this enlarging mass is recommended. 2. ??The 1.0 cm mass in the right breast at the 3 o'clock position, 4 cm from the nipple has increased in size. ??This is of low suspicion for malignancy and is favored to represent a complicated cyst or cyst cluster. ??Ultrasound-guided biopsy of this enlarging mass is recommended. 3. ??No evidence of right axillary lymphadenopathy by ultrasound. BI-RADS: 4A - Suspicious for malignancy. ??Biopsy is recommended. I discussed the findings and impression with the patient at the time of the examination. ??This facility will contact the referring clinician's office to obtain an order for the biopsy. ??The patient will then be contacted to schedule the biopsy appointment. Electronically signed by: Laith Barrera M.D. Narrative 07/03/2022 9:51 AM DATA WAREHOUSING MANAGER EXAMINATION: US BREAST RIGHT LIMITED ORDERING HEALTHCARE PROVIDER: MAKSIM SOSA HISTORY: 16-year-old female presents for follow-up of a probably benign palpable mass in the right breast, which the patient states has increased in size. COMPARISON: Breast ultrasounds from [facility] dated 05/01/2022, 03/20/2021, and 09/20/2020. TECHNIQUE: Multiple grayscale and color Doppler ultrasound images of the right breast were obtained. FINDINGS: Targeted ultrasound of the right breast palpable area of concern at the 4 o'clock position, 4 cm from the nipple demonstrates a 2.9 x 1.7 x 2.9 cm oval circumscribed hypoechoic mass with parallel orientation, increased through transmission, and internal blood flow on color Doppler. ??This mass has increased in size since September 2020, at which time it measured 1.9 x 0.9 x 1.8 cm. Targeted ultrasound of the right breast at the 3 o'clock position, 4 cm from the nipple demonstrates a 1.0 x 0.7 x 0.7 cm oval circumscribed mass with mixed hypoechoic and anechoic components, parallel orientation, increased through transmission, and no evidence of internal blood flow on color Doppler. ??This has increased in size since April 2021, at which time it measured 0.3 x 0.3 x 0.4 cm Targeted ultrasound of the right axilla demonstrates no evidence of suspicious axillary lymphadenopathy. Maksim Sosa MD IMG MAMMO PROCEDU RES Final Result documented in this encounter Visit Diagnoses Diagnosis Benign neoplasm of right breast documented in this encounter Care Teams Catering Director Relationship Specialty Start Date End Date Maksim Sosa MD PCP - General 09/09/20 documented as of this encounter
--- OUTSIDE RECORDS SUMMARY | 2024-05-20 19:27 | XMS_ITS | Encounter Summary ---
Author Organization [facility] Address [address] [place] [address] Phone Care Team Providers Care Vessel Welder Name Role Phone Marcela Hyatt MD Primary Care Pro vider Reason for Referral * Diagnostic Imaging (Routine) - Closed Specialty Diagnoses / Procedures Referred By Contac t Referred To Contact Diagnoses Fibroadenoma of right breast Procedures US Breast Right Limited Deidre Caceres MD PhD [address] [facility] [phone] [place] [address] Phone: tel: fax: [address] [phone] Referral ID Status Reason Start Date Expiration Date Visits Re quested Visits Authorized [id number] Closed 07/16/2023 08/14/2024 1 1 R SCRUBBER Encounter Details Date Type Department Care Team (Late st Contact Info) Description 07/16/2023 Orders Only [facility] Surgery [address] [facility] Advanced Medicine 5th [place] [address] [place] [address] Deidre Caceres MD PhD [address] [facility] [phone] [place] [address] Fibroadenoma of right breast (Primary Dx) Social History [...] on file Legal Sex Female 6:26 PM FLOOR SCRUBBER Gender Identity Female 02/09/2024 11:18 AM CDT Sexual Orientation Straight 02/09/2024 11 :18 AM CDT documented as of this encounter Plan of Treatment Not on file documented as of this encounter Results * US Breast Right [...] ?? 2. Clinical follow-up. Dictated by: Kianna Starkey [...] encounter Visit Diagnoses Diagnosis Fibroadenoma of right breast- Primary Fibroadenoma of right breast documented in this encounter Care Teams Vessel Welder Relationship Specialty Start Date End Date Marcela Hyatt MD PCP - General 09/09/20 documented as of this encounter
--- OUTSIDE RECORDS SUMMARY | 2024-05-20 19:36 | XMS_ITS | Referral Summary ---
Author Organization [facility] Address [address] [place] [address] Care Team Providers Care System Development Manager Name Role Phone Marcela Hyatt MD Primary Care Provider [phone] Source Comments [facility],non-owned Affiliates and Associated Physician Practices is amultiple site organization consisting of ambulatory clinics and hospital sitesin [place], [place], [place] and [place]. This disclosure is being madepursuant to the Care Everywhere program and may not contain all information available regarding this patient. Last updated 18.[facility] [place] Allergies No known active allergies Active Problems Problem Noted Date Diagnosed Date Screening for cardiovascular condition Social History Tobacco Use Types Packs/Day Years Used Date Smoking Tobacco: Never Smokeless Tobacco: Never Alcohol Use Standard Drinks/Week Comments No 0 (1 standard drink = 0.6 oz pur e alcohol) Sex and Gender Information Value Date Recorded Sex Assigned at Not on file Gender Identity Not on file Sexual Orientation Not on file Last Filed Vital Signs Vital Sign Reading Time Taken Comments Blood Pressure 104/62 11/30/2018 9:27 AM CDT Pulse 80 11/30/2018 9:27 AM CDT Temperature - - Respiratory Rate 12 11/30/2018 9:27 AM CDT Oxygen Saturation 100% 11/30/2018 9:27 AM CDT Inhaled Oxygen Concentration - - Weight 52 kg (114 lb 10.2 oz) 11/30/2018 9:27 AM CDT Height 166.5 cm (5' 5.55 ) 11/30/2018 9:27 AM CD T Body Mass Index 18.76 11/30/2018 9:27 AM CDT Body Mass Index Percentile 41.29% 11/30/2018 9:2 7 AM CDT Growth Chart: [facility] (Girls, 2- 20 Years) Plan of Treatment Not on file Care Teams System Development Manager Relationship Specialty Start Date End Date Marcela Hyatt MD [address] [phone] PCP - General Pediatrics 11/30/18
--- OUTSIDE RECORDS SUMMARY | 2024-05-20 19:36 | XMS_ITS | Clinical Summary ---
Author Organization [facility] Address [address] [facility] [place] [address] Care Team Providers Care Oil Burner Mechanic Name Role Phone Marcela Hyatt MD Primary Care Provider [phone] Source Comments [facility] [employer],non-owned Affiliates and Associated Physician Practices is amultiple site organization consisting of ambulatory clinics and hospital sitesin [place], [place], [place] and [place]. This disclosure is being madepursuant to the Care Everywhere program and may not contain all information available regarding this patient. Last updated 18.[facility] [employer] Allergies No known active allergies Active Problems Problem Noted Date Diagnosed Date Screening for cardiovascular condition Family History Medical History Relation Name Comments Cardiomyopathy Neg Hx Congenital Heart defect Neg Hx Sudd. <30 Neg Hx Social History Tobacco Use Types [...] 11/30/2018 9:2 7 AM CDT Growth Chart: [facility] (Girls, 2- 20 Years) Plan of Treatment Health Maintenance Due Date Last Done Comments HIV SCREENING 11/02/2019 HPV VACCINE (1 - 3-dose series) 11/02/2019 CHLAMYDIA/GONORRHEA SCREENING 2020 HEPATITIS C SCREENING 10/28/2022 DTAP/TDAP/TD VACCINES (1 - Tdap) 11/02/2023 HEPATITIS B VACCINE (1 of 3 - 19+ 3-dose series) 11/02/2023 COVID-19 VACCINE (1 - 2023-2 5 season) 2024 INFLUENZA VACCINE (#1) 2024 DEPRESSION SCREENING 05/17/2024 ZOSTER VACCINE (1 of 2) 2054 HIB VACCINE Aged Out No longer eligi ble based on patient's age to complete this topic MENINGOCOCCAL VACCINE Aged Out No christie brittany eligible based on patient's age to complete this topic PNEUMOCOCCAL VACCINE Aged Out No long er eligible based on patient's age to complete this topic Care Teams Oil Burner Mechanic Relationship Specialty Start Date End Date Marcela Hyatt MD [address] [phone] PCP - General Pediatrics 11/30/18
--- OUTSIDE RECORDS SUMMARY | 2024-05-20 19:37 | XMS_ITS | Encounter Summary ---
Author Organization [facility] Address [address] [place] [address] Care Team Providers Care Ibm Bpm Developer Name Role Phone Unavailable Primary Care Provider Unavailabl e Encounter Details Date Type Department Care Team (Latest Contact Info) Description 11/24/2018 11:32 AM CDT - 11/24/2018 11:59 PM CDT Hospital Encounter [facility] at [address] [address] Aaron Harley MD Discharge Disposition: Home or Self Care Social History Tobacco Use Types Packs/Day Years Used Date Smoking Tobacco: Never Assessed Sex and Gender Information Value Date Recorded Sex Assigned at Not on file Gender Identity Not on file Sexual Orientation Not on file documented as of this encounter Plan of Treatment Not on file documented as of this encounter Procedures Procedure Name Priority Date/Time Associated Diagnosis Comments CARDIAC RHYTHM STRIP ORDER 11/30/2018 7:19 PM CDT documented in this encounter Results * CARDIAC RHYTHM STRIP ORDER (11/30/2018 7:19 PM CDT) Narrative 11/30/2018 7:19 PM CDT Ordered by an unspecified provider. Scanned Document CARDIAC SERVICES ORD ERABLES documented in this encounter Visit Diagnoses Not on filedocumented in this encounter
--- OUTSIDE RECORDS SUMMARY | 2024-05-20 19:37 | XMS_ITS | Encounter Summary ---
Author Organization [facility] Address [address] [facility] [place] [address] Care Team Providers Care Police Chief Deputy Name Role Phone Marcela Hyatt MD Primary Care Provider [phone] Reason for Visit * Reason Comments Chest Pain * Cardiac (Routine) - Closed Specialty Diagnoses / Procedures Referred By Shimon hale Referred To Contact Pediatric Cardiology Diagnoses Encounter for screening for cardiovascular disorders Procedures CO ELECTROCARDIOGRAM, COMPLETE [address] [id number] Rosa Elena Rosas MD [address] [place] [id number] Referral ID Status Reason Start Date Expiration Date Visits Re quested Visits Authorized [id number] Closed 11/30/2018 05/29/2019 1 1 Encounter Details Date Type Department Care Team (Latest Contact Info) Description 11/30/2018 8:49 AM CDT - 11/30/2018 11:59 PM CDT Hospital Encounter [facility] at [address] [address] Rosa Elena Rosas MD [address] [place] [id number] Discharge Disposition: Home or Self Care Social [...] on file documented as of this encounter Last Filed [...] 11/30/2018 9:2 7 AM CDT Growth Chart: [facility] (Girls, 2- 20 Years) documented in this encounter Progress Notes * Rosa Elena Rosas MD - 11/30/2018 11:59 PM CDT Images from the original note were not included. Attending Physician: Rosa Elena Rosas MD Office Pediatric Cardiology Consult / Clinic Note Patient: Sulma Cardona Date of : 2005 Date of Consultation: 11/30/2018 Dear Marcela Hyatt MD, I had the privilege of seeing your patient, Sulma, here in pediatric cardiology clinic at [facility] accompanied by her mother. Sulma is a 13 year old child who is referred for evaluation of chest pain. Sulma has been having episodes of chest pain since last year. Initially they were intermittent buthave increased in frequency over the past month where they are now occurring every day. They only occur after exercise and at rest. She describes the pain as a sharp pain in the middle of her chest and without radiation. She denies any shortness of breath or dizziness. She has not had any syncope. She has a good energy level and can keep up with her peers. She is active at baseline and participates in soccer and other recreational activities. She denies any chest pain during exercise. She consumes proper hydration and a balanced diet. She had an outside EKG and chest x-ray report which I reviewed. Medical records reviewed and pertinent details are included above. Past Medical History: Sulma has no chronic medical issues. Current Meds: No current outpatient prescriptions on file. Allergies: No Known Allergies Family History: Grandparents with heart disease in 50's There is no family history of congenital heart disease, arrhythmias, or unexplained sudden . Premature ischemic heart disease (male<55yrs/female<65yrs): No Hypercholesterolemia: No Coronary artery disease: No Stroke: No Hypertension: No Social History: Sulma lives at home with her mother and sister. She is in middle school Review of systems: Constitutional: No history of unexplained fever or weight loss. Neuro: No history of seizures. No syncope. HEENT: No vision problems or hearing loss. Resp: No history of cough, wheezing, or recurrent chest infections. -Asthma GI: No vomiting, diarrhea, or reflux : Good urine output. No hematuria. No renal anomalies. Endocrine: No symptoms of excessive coldness or hotness. No hair loss. The remaining 10 point review of systems is negative. Physical Exam: BP 104/62 Pulse 80 Resp 12 Ht 166.5 cm Wt 52 kg (114 lb 10.2 oz) SpO2 100% BMI 18.76 kg/m2 In general, Sulma was well nourished, acyanotic, and in no distress. No dysmorphic features. The oropharynx is moist. There is no scleral icterus or jaundice. The lungs are clear bilaterally and there are no retractions or tachypnea. The chest is symmetric. The precordium was quiet with a regular rate and rhythm. Chest pain is not reproducible. The first and second heart sounds were normal with a physiologic split second heart sound. No murmur was audible on exam. Diastole was quiet. No rub orgallop. The abdomen was soft with the liver edge palpable just below the right costal margin. Normal bowel sounds. Extremities are warm, well-perfused, and without clubbing. There were 2+ bilateral femoral pulses without brachiofemoral delay. Tone is normal for age. CURRENT DIAGNOSTIC TESTING ( I have personally reviewed and interpreted these studies) ECG: Sinus bradycardia IMPRESSION Sulma is a 13 year old with: 1. Chest pain PLAN Sulma has a normal cardiac evaluation by exam and ECG. Sulma's chest pain sounds consistent with costochondritis or inflamed joints. These chest pains are common in the pre-teen/teenage population and are often aggravated by hormones of growth and puberty and poor nutrition/hydration. Sulma's normal cardiac evaluation today certainly suggests against a cardiovascular etiology for the chest pain. I did suggest Ibuprofen 600mg twice per day with food x 3 days followed by 400mg twice per day with food. I have asked the family to call me if her symptoms continue. Given Sulma's normal evaluation today, I do not need to see her routinely here in cardiology clinic. Of course should any concerns on yours or the family's arise, I would be more than happy to reevaluate her. In the meantime, Sulma has no restrictions from a cardiovascular standpoint regarding routine care or activity. Sincerely, Rosa Elena Rosas MD CC: Marcela Hyatt MD [address] [place] [phone] documented in this encounter Plan of Treatment Not on file documented as of this encounter Procedures Procedure Name Priority Date/Time Associated Diagnosis Comments EKG 15-LEAD Routine 11/30/2018 9:40 AM CDT Screening for cardiovascular condition documented in this encounter Results * EKG 15-LEAD (11/30/2018 9:40 AM CDT) Ventricular Rate 56 BPM CG MUSE Atrial Rate 56 BPM CG MUSE P-R Interval 144 ms CG MUSE QRS Duration ms 80 ms CG MUSE Q-T Interval ms 444 ms CG MUSE QTC Calculation (Bezet) 428 ms CG MUSE Calculated P [place] 53 degrees CG MUSE Calculated R [place] 100 degrees CG MUSE Calculated T [place] 70 degrees CG MUSE Interpretation EKG * Pediatric ECG Analysis * Sinus bradycardia No previous ECGs available Confirmed by Rosa Elena Rosas ([id number]) on 12/04/2018 4:28:11 PM CG MUSE 11/30/2018 9:40 AM CDT 12/04/2018 4:28 PM CDT Rosa Elena Rosas MD ECG ORDERABLES CG MUSE documented in this encounter Visit Diagnoses Diagnosis Screening for cardiovascular condition- Primary Screening for other and unspecified cardiovascular conditions documented in this encounter Care Teams Police Chief Deputy Relationship Specialty Start Date End Date Marcela Hyatt MD [address] [id number] PCP - General Pediatrics 11/30/18 documented as of this encounter
--- OUTSIDE RECORDS SUMMARY | 2024-05-20 19:37 | XMS_ITS | Patient Health Summary ---
Author Organization [facility] [employer] Address [address] [place] [address] Care Team Providers Care Tool Repairer Bench Name Role Phone Marcela Hyatt MD Primary Care Provider [phone]- [phone] Note from [facility],non-owned Affiliates and Associated Physician Practices is amultiple site organization consisting of ambulatory clinics and hospital sitesin [place], [place], [place] and [place]. This disclosure is being madepursuant to the Care Everywhere program and may not contain all information available regarding this patient. Last updated 18.[facility] Allergies No known active allergies Active Problems [...] 11/30/2018 9:2 7 AM CDT Growth Chart: CDC (Girls, 2- 20 Years) Procedures * CARDIAC RHYTHM STRIP ORDER(Performed 11/30/2018) * EKG 15-LEAD(Performed 11/30/2018) Performed for Screening for cardiovascular condition Results * CARDIAC RHYTHM STRIP ORDER (11/30/2018 7:19 PM CDT) Narrative 11/30/2018 7:19 PM CDT Ordered by an unspecified provider. Scanned Document CARDIAC SERVICES ORD ERABLES * EKG 15-LEAD (11/30/2018 9:40 AM CDT) Ventricular Rate 56 BPM CG MUSE Atrial Rate 56 BPM CG MUSE P-R Interval 144 ms CG MUSE QRS Duration ms 80 ms CG MUSE Q-T Interval ms 444 ms CG MUSE QTC Calculation (Bezet) 428 ms CG MUSE Calculated P [place] 53 degrees CG MUSE Calculated R [place] 100 degrees CG MUSE Calculated T [place] 70 degrees CG MUSE Interpretation EKG * Pediatric ECG Analysis * Sinus bradycardia No previous ECGs available Confirmed by Rosa Elena Rosas ([id number]) on 12/04/2018 4:28:11 PM CG MUSE 11/30/2018 9:40 AM CDT 12/04/2018 4:28 PM CDT Rosa Elena Rosas MD ECG ORDERABLES CG MUSE Care Teams Tool Repairer Bench Relationship Specialty Start Date End Date Marcela Hyatt MD [address] [facility] [address] [place] [id number] PCP - General Pediatrics 11/30/18
== END 2024-05-13 13:27 | disposition home or self-care (01) ==
PROVIDERS: Emergency Provider Nurse Practitioner Family; PCP Pediatrics
DX: J06.9 Acute upper respiratory infection, unspecified (principal); R05.9 Cough, unspecified; Z20.822 Contact with and (suspected) exposure to COVID-19
CPT/HCPCS: 87426; 87804; 99202; G0463